=== PATIENT | male | born 1950 | race Caucasian/White ===

== ENCOUNTER 2016-06-12 14:16 | Inpatient (IN) | payer OTHER ==
[~2016-06-12] VITALS: Ht 170.2 cm; Wt 108.7 kg
[~2016-06-12 14:16] MED LIST: /IPRAINH INFIL; /IPRAINH INH; /MOXI40TA OR; /TAMS4CA OR; ACET65TA OR; ALBU17IN INH; ALBUTEROL INH; ALPR0.25 PO; AMLO5TAB2 PO; ASPI81TA7 PO; ATEN50TA2 OR; Astepro; CEFT500T3 PO; CITA10TA5 PO; CLAR5CHW OR; COLA100C2 OR; COZA50TA18 OR; DILA100C OR; DUONSOL IN; FLOM5CAP PO; FORADIL INH; FURO20TA2 PO; LASI20TA OR; LEVA500T OR; LEVOTAB10 PO; LOSA50TA20 PO; MEDR8TAB OR; MEDR8TAB PO; METH16TA OR; MIRALEX PO; MUCI600T34 PO; MUCINEX PO; MUCU400T2 OR; NASONEX; OMEP20CA3 PO; OMEP20TA7 PO; PERFOROMIST INH; PHEN100C PO; PRED10TA2 OR; PRED20TA OR; PRED20TA PO; PRIL40CA OR; PULM0.5S IN; SING10TA31 OR; SYMB16INH INH; SYMB80AE IN; VENTAER IN; VENTAER INH; VIBR100C OR; VIT D 2000 PO; VITA200015 PO; XANA0.25 OR; ZITH250T OR; mucinex PO; proventil; proventil inhaler INH
[2016-06-12 15:18] LABS: BASO % 0.9 % (0.0-1.0); EOS # 0.1 K/mm3 (0.0-0.50); EOS % 2.3 % (0.0-3.0); LARGE UNSTAINED CELL # 0.2 K/mm3 (0.0-0.4); LARGE UNSTAINED CELL % 3.5 % (0.0-4.0); LYMPH # 1.5 K/mm3 (1.5-4.5); MEAN CORPUSCULAR HEMOGLOBIN 28.6 pg (27.0-33.0); MEAN CORPUSCULAR HGB CONC 33.6 g/dl (32.0-36.5); MEAN CORPUSCULAR VOLUME 85.3 fl (80.0-96.0); MONO # 0.5 K/mm3 (0.0-0.8); MONO % 8.6 % (0.0-5.0); NEUTROPHILS # 3.3 K/mm3 (1.8-7.7); NEUTROPHILS % 60.7 % (36.0-66.0); PLATELET COUNT, AUTOMATED 185 k/mm3 (150-450); RED CELL DISTRIBUTION WIDTH 13.1 % (11.5-14.5); WHITE BLOOD COUNT 5.4 K/mm3 (4.0-10.0)
[2016-06-12 15:21] LABS: INR 1.06
--- NOTE | 2016-06-12 15:21 | REP ---
Clinical: Acute cerebrovascular accident (< 4.5 hours). Comparison: None . Findings: The ventricles, sulci, and cisterns are normal in position and appearance. Walters-white differentiation is maintained. No acute intracranial hemorrhage, mass/mass effect, pathology or trauma/injury. No evidence for acute infarction. No extra-axial fluid collection. Calvarium is intact. Paranasal sinuses and mastoid air cells are clear. Impression: Normal noncontrast head CT. No evidence for acute intracranial pathology, hemorrhage or trauma/injury. Signed by Luis Enrique Barnes MD 06/12/2016 03:12 P
[2016-06-12 15:28] LABS: ANION GAP 8 MEQ/L (8-16); BLOOD UREA NITROGEN 23 MG/DL (7-18); CALCIUM LEVEL 8.8 MG/DL (8.8-10.2); CARBON DIOXIDE LEVEL 28 MEQ/L (21-32); CHLORIDE LEVEL 106 MEQ/L (98-107); CREATININE FOR GFR 0.87 MG/DL (0.70-1.30); GLOMERULAR FILTRATION RATE > 60.0 (>49); GLUCOSE, FASTING 94 MG/DL (80-110); SODIUM LEVEL 142 MEQ/L (136-145)
--- NOTE | 2016-06-12 15:37 | REP ---
Clinical: Acute cerebrovascular accident. Comparison: 03/11/2015 . Findings: The mediastinum and cardiac silhouette are stable and within normal limits for portable technique. The lung lee are clear without acute consolidation, effusion, or pneumothorax. Skeletal structures are intact. Impression: Normal portable chest x-ray Signed by Luis Enrique Barnes MD 06/12/2016 03:28 P
[2016-06-12] MEDS ORDERED: ARTI99.0 OU (15:59)
[2016-06-12] MEDS ORDERED: ACETAMINOPHEN 325 MG TAB As Ordered ONE (17:03)
[2016-06-12] MEDS ORDERED: FUROSEMIDE 20 MG TAB PO PRN (18:30)
[2016-06-12] MEDS ORDERED: POLYVINYL ALCOHOL OPHTH SOLN 15 ML(LIQUITEARS) OU PRN (18:30)
[2016-06-12] MEDS ORDERED: ALPRAZolam 0.25 MG TAB PO PRN (18:30)
[2016-06-12] MEDS ORDERED: ALBUTEROL 90 MCG/ACT 8GM HFA INHALER INH PRN (18:30)
[2016-06-12] MEDS ORDERED: LORazepam 2 MG/ML VIAL (J2060) As Ordered ONE (19:02)
[2016-06-12 19:22] LABS: CHOLESTEROL LEVEL 162 MG/DL (<200); TRIGLYCERIDES LEVEL 192 MG/DL (<150)
--- NOTE | 2016-06-12 20:20 | REPUSA ---
MRI of the brain Clinical history: dizziness. Technique: Multiecho multiplanar MRI images of the brain were obtained without administration of cont rast. Diffusion weighted images with ADC mapping was also obtained. Findings: The ventricles and sulci are symmetric bilaterally. The brain parenchyma demonstrates uniform and nor mal signal on all sequences. However, there is an area restricted diffusion in the subcortical white matter in the right posterior parietal lobe. There is no midline shift, mass effect, or extra-axial f luid collection. The midline intracranial structures do not demonstrate any gross abnormalities. The cervical cranial junction is intact. The orbits are unremarkable. The visualized paranasal sinuses an d mastoid air cells are clear. The osseous structures and superficial soft tissues are unremarkable. The vascular structures demonstrate appropriate flow voids. Impression: Findings consistent with a small focal acute infarct in the subcortical white matter of t he posterior right parietal lobe. A call was placed to the facility, but the patient was being transferred. Later attempted call will be performed.
--- NOTE | 2016-06-12 20:20 | REPUSA ---
MR angiogram of the brain Clinical history: dizziness. Technique: [id number]-ct-zazuit MRA images of the brain were obtained without administration of contrast. 3 -D MIP images were also obtained. Findings: The vascular structures extending from the distal carotid and vertebrobasilar arterial syst ems, through the upper [place], demonstrate normal caliber and contour. There is no evidence of an eurysm, stenosis, or thrombosis. Impression: Unremarkable MRA examination of the brain.
--- NOTE | 2016-06-12 21:09 | HPE ---
DATE OF ADMISSION: 06/12/2016 PRIMARY CARE PROVIDER: Dr. Raman Galaviz. HISTORY OF PRESENT ILLNESS: This patient is a 66-year-old male with a past medical history significant for chronic obstructive pulmonary disease (COPD), obstructive sleep apnea (CHRIS), seizure disorder, hyperlipidemia, benign prostatic hypertrophy (BPH), gastroesophageal reflux disease (GERD), arteriovenous (AV) malformation of the stomach, iron-deficiency anemia, who presented to [facility] on 06/12/2016, for left-sided weakness. The patient stated he was taking a nap for roughly 1-1/2 hours, and he woke up between 12:30 to 1:00 o'clock with left arm and left leg weakness and numbness. The patient does not remember the onset of the symptoms and the patient also feels his head is very full and without any visual or auditory changes. The patient came here to [facility] for further evaluation. When the patient arrived in the [facility] Emergency Room, all the vital signs were in the satisfactory range except the blood pressure of 172/97. The patient had similar symptoms in the past. He had the left face and the left shoulder numbness in November of 2014. The patient was seen in [place], which did not show any significant findings, and the patient had complete resolution of the symptoms and the patient has been taking aspirin 81 mg. ALLERGIES: PENICILLIN, SULFA, TETRACYCLINE, and CODEINE. HOME MEDICATIONS: - Ventolin two puff inhalation every four hours as needed - alprazolam 0.25 mg by mouth four times a day as needed for anxiety - amlodipine 5 mg by mouth at bedtime - aspirin 81 mg by mouth daily - Symbicort two puff inhalation twice a day - vitamin D 2000 units by mouth daily - citalopram 10 mg by mouth daily - Lasix 20 mg by mouth daily as needed for lower extremity swelling - levocetirizine 5 mg by mouth at bedtime - Losartan 50 mg by mouth twice a day - omeprazole 40 mg by mouth daily - Flomax 0.4 mg by mouth daily PAST MEDICAL HISTORY: 1. COPD. 2. CHRIS on continuous positive airway pressure (CPAP). 3. Seizure disorder. 4. Hyperlipidemia. 5. Hiatal hernia. 6. BPH. 7. Gastroesophageal reflux disease. 8. AV malformation of the gastric antrum. 9. Iron-deficiency anemia. PAST SURGICAL HISTORY: 1. Carpal tunnel repair. 2. Lower spinal cord segment fusion in 1967. 3. Right rotator cuff repair. SOCIAL HISTORY: The patient quit smoking in 1985. The patient drinks a beer occasionally. Denies any recreational drug use. REVIEW OF SYSTEMS: GENERAL: No fever, no chills. HEENT: No vision change, no auditory change. CARDIOVASCULAR: No chest pain, no palpitations. RESPIRATORY: No shortness of breath, cough or sputum production. GASTROINTESTINAL: No nausea, no vomiting, no abdominal pain. MUSCULOSKELETAL: Intermittent lower extremity swelling. No muscle pain or joint pain. NEUROLOGIC: Acute onset of left upper and lower extremity numbness and tingling between 12:30 to 1 p.m. today, and the symptoms resolved in the last 5-6 hours. The patient had similar episode happen in the past, once in [place]. OBJECTIVE: VITAL SIGNS: Blood pressure is 167/94, pulse 80, respirations 18, temperature 97.8, pulse oximetry 96% on room air. Body weight is 106.49 kg. Body height is 170.18 cm. GENERAL: No sign of acute distress. Alert and oriented times three. Morbidly obese. HEENT: Normocephalic, atraumatic. Extraocular motor grossly intact. CARDIOVASCULAR: Distant heart sounds. Positive S1, S2. Regular rate. LUNGS: Clear to auscultation bilaterally. ABDOMEN: Soft, nontender, nondistended. Bowel sounds present. No rebound, no guarding. EXTREMITIES: No edema, no cyanosis. NEUROLOGIC: Sensation to fine touch grossly intact. Muscle strength 5/5 throughout. LABORATORY DATA: WBC is 5.4, hemoglobin 13, hematocrit 38.8, platelet count 185. Sodium 142, potassium 4, chloride 106, carbon dioxide 28, BUN 23, creatinine 0.87, GFR greater than 60, fasting glucose 94, calcium 8.8. Total CK is 143, troponin I is less than 0.02. PT is 13.9, INR is 1.06. IMAGING: CT of the head without contrast showed normal non-contrast head CT. No evidence of acute intracranial pathology, hemorrhage or trauma/injury. Chest x-ray showed normal portable chest x-ray. ASSESSMENT AND PLAN: 1. Transient ischemic attack (TIA). The patient is admitted to the progressive care unit (PCU) under observation status. The patient now has complete resolution of the symptoms. Continue with neurologic checks. Discussed the case with Dr. Cutler. The patient's aspirin will be discontinued, and the patient was started on Plavix. We will complete the stroke workup and the patient will get MRI/MRA and carotid artery ultrasound, and echocardiogram. 2. The patient was started on permissive hypertension. Blood pressure has holding parameter. 3. Obstructive sleep apnea. The patient has continuous positive airway pressure (CPAP) with him. 4. Chronic obstructive pulmonary disease, currently compensated. Does not require any oxygen. 5. Hypertension. Currently will allow patient for permissive hypertension. Will continue to monitor vitals. 6. History of seizure disorder, stable. 7. Hyperlipidemia. Follow with lipid profile. The patient is not on any cholesterol medication at home. 8. History of benign prostatic hypertrophy (BPH), stable. Continue tamsulosin. 9. History of arteriovenous (AV) malformation of gastric antrum. 10. Gastroesophageal reflux disease. Continue omeprazole. 11. History of iron-deficiency anemia. Hemoglobin and hematocrit stable. 12. Deep venous thrombosis (DVT) prophylaxis. Patient will be on thromboembolism deterrent stockings (TEDs) and sequential compression devices.
--- NOTE | 2016-06-12 23:30 | EDDOCDS ---
Physician Documentation [facility] Name: Wendy Hoang Age: 66 yrs Sex: Male : 1950 Arrival Date: 06/12/2016 Time: 14:16 Bed 18 Private MD: Raman Galaviz MD Disposition: 06/12/16 18:05 Hospitalization ordered by Jody Earl for Inpatient Admission. Preliminary diagnosis is Cerebral ischemia. - Bed requested for PCU. - Status is Inpatient Admission. nn1 - Condition is Stable. - Problem is new. - Symptoms are unchanged. Historical: - Allergies: Advair Diskus; Codeine Sulfate; PENICILLINS; Pulmicort; SULFA (SULFONAMIDES); TETRACYCLINES; - Home Meds: 1. alprazolam 0.25 mg Oral TbDL as needed 2. amlodipine 5 mg Oral tab once daily PT STATES NORMALLY TAKES AT HS 3. aspirin 81 mg Oral chew once daily 4. citalopram 10 mg Oral tab once daily 5. furosemide 20 mg Oral tab once daily 6. levocetirizine 5 mg oral tab once daily 7. losartan 50 mg oral tab 2 times per day 8. omeprazole 40 mg Oral cpDR once daily 9. pro Air 90 as needed 10. symbicort 160/4.5 2 puffs BID 11. tamsulosin 0.4 mg oral cp24 once daily 12. vit d 2000 daily - PMHx: COPD; Hypertension; Seizures; - PSHx: Rotator Cuff Repair- Right; - Social history: Smoking status: Patient/guardian denies using No barriers to communication noted, The patient speaks fluent Thai. - Family history: Not pertinent. - : The pt / caregiver states he / she is not on anticoagulants. Home medication list is obtained from the patient, [place] import data. - Exposure Risk Screening:: None identified. Vital Signs: 06/12 14:20 BP 172 / 97; Pulse 86; Resp 18 S; Temp 97.8(O); Pulse Ox 96% on R/A; Weight 106.59 kg / gr2 234.99 lbs (R); Height 5 ft. 7 in. (170.18 cm) (R); Pain 3/10; 14:40 BP 161 / 89 (auto/); kr3 14:42 Pulse 80 MON; Pulse Ox 95% ; kr3 15:10 BP 174 / 92 (auto/); ld5 15:10 Pulse 84 MON; Pulse Ox 95% ; ld5 15:40 BP 153 / 93 (auto/); ld5 15:40 Pulse 78 MON; Pulse Ox 95% ; ld5 16:10 BP 139 / 72 (auto/); ld5 16:10 Pulse 74 MON; Pulse Ox 95% ; ld5 16:40 BP 167 / 94 (auto/); ld5 16:41 Pulse 80 MON; Pulse Ox 96% ; ld5 17:10 BP 168 / 103 (auto/); ld5 17:10 Pulse 74 MON; Pulse Ox 95% ; ld5 17:40 BP 143 / 71 (auto/); ld5 17:40 Pulse 70 MON; Resp 18; Temp 97.9; Pulse Ox 93% ; ld5 18:10 BP 159 / 101 (auto/); nn1 18:11 Pulse 80 MON; Pulse Ox 95% ; nn1 18:38 BP 178 / 100 (auto/); ld5 18:38 Pulse 76 MON; Pulse Ox 95% ; ld5 18:53 BP 178 / 99 (auto/); nn1 18:53 Pulse 78 MON; Pulse Ox 96% ; nn1 20:33 BP 149 / 87 (auto/); nn1 20:34 Pulse 82 MON; Pulse Ox 95% ; nn1 20:40 BP 149 / 87; Pulse 78; Resp 18; Temp 96.4(O); Pulse Ox 93% on R/A; Pain 0/10; nn1 20:48 BP 161 / 93 (auto/); nn1 20:49 Pulse 78 MON; Pulse Ox 94% ; nn1 21:03 BP 166 / 96 (auto/); nn1 21:04 Pulse 76 MON; Pulse Ox 95% ; nn1 21:18 BP 145 / 90 (auto/); nn1 21:19 Pulse 78 MON; Pulse Ox 93% ; nn1 21:33 BP 143 / 87 (auto/); nn1 21:36 Pulse 72 MON; Pulse Ox 96% ; nn1 23:16 BP 159 / 85; Pulse 73; Resp 18; Temp 97.4(O); Pulse Ox 93% on R/A; Pain 0/10; nn1 14:20 Body Mass Index 36.81 (106.59 kg, 170.18 cm) gr2 MDM: 15:01 RN interventions must not delay CT ordered. ld5 15:01 Retort Feeder Ground Bone/Pulse Ox/q 15 min VS ordered. ld5 15:01 Accucheck ordered. ld5 15:01 IV Saline Lock ordered. ld5 15:01 Neuro VS q 15 Minutes ordered. ld5 15:01 Patient must be on CC stretcher and weighed via bed scale ordered. ld5 15:01 Rhythm Strip to chart ordered. ld5 15:01 Stroke assessment pack to bedside ordered. ld5 15:02 Basic Metabolic Profile Ordered. EDMS 15:02 CBC with Diff Ordered. EDMS 15:02 Partial Thromboplastin Time Ordered. EDMS 15:02 Prothrombin Time Profile\E\INR Ordered. EDMS 15:02 Chest, 1 View Ordered. EDMS 15:02 CT Head Without Contrast Ordered. EDMS 15:02 ECG WITH READING ER PHYS+CARDIAG ordered. EDMS 15:14 CARDIAC INJURY PROFILE Ordered. EDMS 15:14 TROPONIN Ordered. EDMS 15:24 BED REQUEST+ADM ordered. EDMS 15:31 Fingerstick Blood Sugar Ordered. EDMS 15:34 Financial registration complete. gjb 15:58 [facility] [place] was scanned into [employer] and attached to record. gjb 16:57 Basic Metabolic Profile Reviewed. ml 16:57 CBC with Diff Reviewed. ml 16:57 Partial Thromboplastin Time Reviewed. ml 16:57 Prothrombin Time Profile\E\INR Reviewed. ml 16:57 Type & Screen Reviewed. ml 16:57 CARDIAC INJURY PROFILE Reviewed. ml 16:57 TROPONIN Reviewed. ml 16:57 Fingerstick Blood Sugar Reviewed. ml 16:57 CT Head Without Contrast Reviewed. ml 16:57 Chest, 1 View Reviewed. ml 17:03 Acetaminophen Tablet 650 mg PO once ordered. ld5 17:04 REGULAR+DIET ordered. EDMS 18:37 Admission / Observation Status ordered. EDMS 18:37 2 GRAM SODIUM DIET ordered. EDMS 18:39 MRI Brain without Contrast Ordered. EDMS 18:39 MRA BRAIN W/O CONTRAST Ordered. EDMS 18:40 ECHOCARD,DOPPLER/COLOR FLOW ordered. EDMS 18:41 Duplex,carotid (complete) Ordered. EDMS 19:03 LORazepam 1 mg IVP once ordered. ld5 19:09 CARDIAC RISK PROFILE Ordered. EDMS 19:33 COMPLETE BLOOD COUNT Ordered. EDMS 19:33 BASIC METABOLIC PROFILE Ordered. EDMS Point of Care Testing: Blood Glucose: 15:24 Blood Glucose: 96 mg/dL; ld5 Ranges: Administered Medications: 17:07 Drug: Acetaminophen 650 mg [acetaminophen 325 mg tablet (2 tabs)] Route: PO; ld5 18:16 Follow up: Response: Pain is decreased ld5 19:10 Drug: LORazepam 1 mg [lorazepam 2 mg/mL injection solution (0.5 mL)] Route: IVP; Site: nn1 right antecubital; Signatures: Dispatcher [employer] EDMO Bisi Ingram MD MD ml Maryjane French, RN RN dls Jordan RichaHeidyLisa, Process Machine Operator Unit ml3 Leti Henriquez RN RN ld5 Ishaan Conroy RN RN nn1 Aury Chavez The chart was reviewed and I authenticate all verbal orders and agree with the evaluation and treatment provided.Corrections: (The following items were deleted from the chart) 15:12 15:02 CARDIAC INJURY PROFILE+LAB ordered. EDMO EDMS 15:13 15:02 TROPONIN+LAB ordered. EDMO EDMS 15:25 15:01 Consult [facility]: Telemedicine Stroke Attending ordered. ld5 rs6 15:53 15:02 TYPE & SCREEN+BBK ordered. EDMO EDMS 19:09 18:57 CARDIAC RISK PROFILE ordered. [facility] EDMS Attachments: 15:58 [facility] Payment Agreement gjb [email or web address]
--- NOTE | 2016-06-12 23:30 | EDDOCDS ---
Nurse's Notes [facility] Name: Wendy Hoang Age: 66 yrs Sex: Male : 1950 Arrival Date: 06/12/2016 Time: 14:16 Bed 18 Private MD: Raman Galaviz MD Diagnosis: Cerebral ischemia Presentation: 06/12 14:22 Presenting complaint: Patient states: Pt presents with c/o left sided weakness and dls feeling dizzy since shortly after 12 noon. Pt recently treated for ear infection. Pt woke up from sleeping in chair difficulty walking weakness left arm and leg denies chest pain c/o slight headache pt has hx of hypertension. Speech is clear. The last date and time the patient was known to be well was was at 10:00 on June 12, 2016. Adult Sepsis Screening: The patient does not have new or worsening altered mentation. Patient's respiratory rate is less than 22. Systolic blood pressure is greater than 100. Patient has a qSOFA score of 0- Negative Sepsis Screen. Suicide/Homicide risk assessment- the patient denies having any suicidal and/or homicidal ideations and does not present with any other emotional, behavioral or mental health complaints. Status: Patient is not a business services sales agent or dependent. Transition of care: patient was not received from another setting of care. 14:22 Acuity: TIFFANY Level 2 dls 14:22 Method Of Arrival: Walkin/Carried/Asstd dls Triage Assessment: 14:29 The onset of the patients symptoms was less than three hours ago. General: Appears dls obese, uncomfortable, well developed, Behavior is cooperative. Pain: Pain currently is 2 out of 10 on a pain scale. Neurological: Level of Consciousness is awake, alert, Oriented to person, place, time, Reports a syncopal episode weakness. Historical: - Allergies: Advair Diskus; Codeine Sulfate; PENICILLINS; Pulmicort; SULFA (SULFONAMIDES); TETRACYCLINES; - Home Meds: 1. alprazolam 0.25 mg Oral TbDL as needed 2. amlodipine 5 mg Oral tab once daily PT STATES NORMALLY TAKES AT HS 3. aspirin 81 mg Oral chew once daily 4. citalopram 10 mg Oral tab once daily 5. furosemide 20 mg Oral tab once daily 6. levocetirizine 5 mg oral tab once daily 7. losartan 50 mg oral tab 2 times per day 8. omeprazole 40 mg Oral cpDR once daily 9. pro Air 90 as needed 10. symbicort 160/4.5 2 puffs BID 11. tamsulosin 0.4 mg oral cp24 once daily 12. vit d 2000 daily - PMHx: COPD; Hypertension; Seizures; - PSHx: Rotator Cuff Repair- Right; - Social history: Smoking status: Patient/guardian denies using No barriers to communication noted, The patient speaks fluent [place]. - Family history: Not pertinent. - : The pt / caregiver states he / she is not on anticoagulants. Home medication list is obtained from the patient, Live[employer] import data. - Exposure Risk Screening:: None identified. Screenin:29 Screening information is obtained from the patient, prior medical records. Fall risk: nn1 No risks identified. Assistance ADL's: requires no assistance with activities of daily living. Abuse/DV Screen: The patient / caregiver reports he/she is: not in a situation that causes fear, pain or injury. Nutritional screening: No deficits noted. Advance Directives: There is no active DNR order. home support is adequate. Assessment: 14:49 Reassessment: Patient appears in no apparent distress at this time. Pain: Denies pain. kr3 Neurological: Level of Consciousness is awake, alert, Substance Abuse Specialist are equal bilaterally Speech is normal, Facial symmetry appears normal, Reports numbness to left arm/hand and left leg which has improved. Reports at home had difficulty moving left leg but now walking with no difficulty.. Respiratory: Respiratory effort is even, unlabored. Derm: Skin is pink, warm & dry. 15:20 General: Appears in no apparent distress, Behavior is cooperative. Pain: Denies pain. ld5 Neurological: Level of Consciousness is awake, alert, obeys commands, Oriented to person, place, time, Substance Abuse Specialist are equal bilaterally Moves all extremities. Speech is normal, Facial symmetry appears normal, Pt reports numbness to left leg when standing but denies when laying down. Respiratory: Airway is patent Respiratory effort is even, unlabored. GI: Abdomen is obese, Bowel sounds present X 4 quads. Abd is soft and non tender X 4 quads. Denies nausea, vomiting. 15:45 General: Pt laying comfortably bed. Awaiting results. Denies any needs at this time. ld5 Will continue to monitor. 16:00 General: Appears in no apparent distress, Behavior is cooperative. Neurological: Level ld5 of Consciousness is awake, alert, Oriented to person, place, time. 16:15 General: Pt laying quietly in ed. Bed repositioned for comfort. Pt alert and oriented ld5 x3. 16:55 General: Appears in no apparent distress, Behavior is appropriate for age, cooperative. ld5 Neurological: Level of Consciousness is awake, alert, obeys commands. Respiratory: Airway is patent Respiratory effort is even, unlabored. 17:07 General: Pt requesting medication for headache. Pt medicated per orders. Lights dimmed ld5 for comfort. Will continue to monitor. 17:45 General: Pt laying quietly in bed. No apparent distress. Reports decrease in headache. ld5 Respirations easy and unlabored. Family member at bedside. Will continue to monitor. 18:15 General: Dinner tray provided. Pt sitting up in bed. Call panchal within reach. Will ld5 continue to monitor. 18:40 General: Pt finished dinner. Tolerated well. Reports headache continues to decrease. ld5 Denies any needs. Bed repositioned for comfort. Call panchal within reach. Will continue to monitor. 18:41 General: Pt's BP trending up but pt denies any change in symptoms. Will continue to ld5 monitor. 19:12 General: Patient medicated prior to MRI, patient in no distress at this time. . nn1 20:41 General: Appears in no apparent distress, comfortable, Behavior is appropriate for age, nn1 cooperative. Pain: Denies pain. Neurological: Level of Consciousness is awake, alert, obeys commands, Oriented to person, place, time. 21:53 General: Patient informed about disposition, patient awaiting to be moved to PCU. nn1 Patient watching basketball game. In no distress at this time. . Respiratory: Airway is patent Respiratory effort is even, unlabored, Respiratory pattern is regular. Derm: Skin is pink, warm & dry. 22:28 General: Per PCU bed is still dirty. . Neurological: Level of Consciousness is awake, nn1 alert, obeys commands, Oriented to person, place, time, Moves all extremities. Facial symmetry appears normal. Respiratory: Airway is patent Respiratory effort is even, unlabored, Respiratory pattern is regular. Derm: Skin is pink, warm & dry. 23:27 General: Appears in no apparent distress, comfortable, Behavior is appropriate for age, nn1 cooperative, Patient denies dizziness, asymptomatic at this time. Patient receptive to admission.. Neurological: Level of Consciousness is awake, alert, Oriented to person, place, time. Respiratory: Airway is patent Respiratory effort is even, unlabored, Respiratory pattern is regular. Derm: Skin is pink, warm & dry. Vital Signs: 14:20 BP 172 / 97; Pulse 86; Resp 18 S; Temp 97.8(O); Pulse Ox 96% on R/A; Weight 106.59 kg gr2 (R); Height 5 ft. 7 in. (170.18 cm) (R); Pain 3/10; 14:40 BP 161 / 89 (auto/); kr3 14:42 Pulse 80 MON; Pulse Ox 95% ; kr3 15:10 BP 174 / 92 (auto/); ld5 15:10 Pulse 84 MON; Pulse Ox 95% ; ld5 15:40 BP 153 / 93 (auto/); ld5 15:40 Pulse 78 MON; Pulse Ox 95% ; ld5 16:10 BP 139 / 72 (auto/); ld5 16:10 Pulse 74 MON; Pulse Ox 95% ; ld5 16:40 BP 167 / 94 (auto/); ld5 16:41 Pulse 80 MON; Pulse Ox 96% ; ld5 17:10 BP 168 / 103 (auto/); ld5 17:10 Pulse 74 MON; Pulse Ox 95% ; ld5 17:40 BP 143 / 71 (auto/); ld5 17:40 Pulse 70 MON; Resp 18; Temp 97.9; Pulse Ox 93% ; ld5 18:10 BP 159 / 101 (auto/); nn1 18:11 Pulse 80 MON; Pulse Ox 95% ; nn1 18:38 BP 178 / 100 (auto/); ld5 18:38 Pulse 76 MON; Pulse Ox 95% ; ld5 18:53 BP 178 / 99 (auto/); nn1 18:53 Pulse 78 MON; Pulse Ox 96% ; nn1 20:33 BP 149 / 87 (auto/); nn1 20:34 Pulse 82 MON; Pulse Ox 95% ; nn1 20:40 BP 149 / 87; Pulse 78; Resp 18; Temp 96.4(O); Pulse Ox 93% on R/A; Pain 0/10; nn1 20:48 BP 161 / 93 (auto/); nn1 20:49 Pulse 78 MON; Pulse Ox 94% ; nn1 21:03 BP 166 / 96 (auto/); nn1 21:04 Pulse 76 MON; Pulse Ox 95% ; nn1 21:18 BP 145 / 90 (auto/); nn1 21:19 Pulse 78 MON; Pulse Ox 93% ; nn1 21:33 BP 143 / 87 (auto/); nn1 21:36 Pulse 72 MON; Pulse Ox 96% ; nn1 23:16 BP 159 / 85; Pulse 73; Resp 18; Temp 97.4(O); Pulse Ox 93% on R/A; Pain 0/10; nn1 14:20 Body Mass Index 36.81 (106.59 kg, 170.18 cm) gr2 Vitals: 14:20 Log In Time: June 12, 2016 at 14:20. gr2 ED Course: 14:19 Patient visited by Brenna Mcbride. gr2 14:19 Raman Galaviz is Private Physician. gr2 14:19 Patient moved to Waiting gr2 14:21 Patient visited by Brenna Mcbride. gr2 14:21 Patient moved to Pre RCE gr2 14:26 Triage Initiated dls 14:30 Teodora Lucio,RN is Primary Nurse. dls 14:30 Patient moved to 18 dls 14:49 Inserted saline lock: 20 gauge in right antecubital area and blood collected. The kr3 patient tolerated the procedure well. 14:50 The patient / caregiver is instructed regarding the plan of care and ED course. kr3 Accompanied by Family Member, Patient has correct armband on for positive identification. Placed in gown. Bed in low position. Call light in reach. Side rails up X2. shelter monitor on. Pulse ox on. NIBP on. 14:55 Bisi Ingram MD is Attending Physician. ml 14:56 Patient visited by Bisi Ingram MD. ml 15:05 Basic Metabolic Profile Sent. ld5 15:05 CBC with Diff Sent. ld5 15:05 Partial Thromboplastin Time Sent. ld5 15:05 Prothrombin Time Profile\E\INR Sent. ld5 15:10 EKG done. (by ED staff). Reviewed by Bisi Ingram MD. ar3 15:14 Patient visited by Baylee Flores PCA. ar3 15:23 TROPONIN Sent. ld5 15:24 CARDIAC INJURY PROFILE Sent. ld5 15:32 CT Head Without Contrast Returned. EDMS 15:46 Patient visited by Leti Henriquez RN. ld5 15:58 [facility] Payment Agreement was scanned into [employer] and attached to record. gjb 16:07 Chest, 1 View Returned. EDMS 16:56 Patient visited by Leti Henriquez,ANGELO. ld5 17:08 Patient visited by Leti Henriquez,ANGELO. ld5 17:41 Patient visited by Leti Henriquez,ANGELO. ld5 18:05 Jody Earl is Hospitalizing Provider. ml 18:16 Patient visited by Leti Henriquez RN. ld5 18:43 Patient visited by Leti Henriquez RN. ld5 20:47 MRA BRAIN W/O CONTRAST Returned. EDMS 20:47 MRI Brain without Contrast Returned. EDMS 23:17 No procedures done that require assistance. nn1 Administered Medications: 17:07 Drug: Acetaminophen 650 mg [acetaminophen 325 mg tablet (2 tabs)] Route: PO; ld5 18:16 Follow up: Response: Pain is decreased ld5 19:10 Drug: LORazepam 1 mg [lorazepam 2 mg/mL injection solution (0.5 mL)] Route: IVP; Site: nn1 right antecubital; Point of Care Testing: Blood Glucose: 15:24 Blood Glucose: 96 mg/dL; ld5 Ranges: Order Results: Lab Order: Basic Metabolic Profile; SPEC'M 06/12/16 14:47 Test: GLUCOSE, FASTING; Value: 94; Range: 80-110; Units: MG/DL; Status: F Test: BLOOD UREA NITROGEN; Value: 23; Range: 7-18; Abnormal: Above high normal; Units: MG/DL; Status: F Test: CREATININE FOR GFR; Value: 0.87; Range: 0.70-1.30; Units: MG/DL; Status: F Test: GLOMERULAR FILTRATION RATE; Value: > 60.0; Range: >49; Status: F Test: SODIUM LEVEL; Value: 142; Range: 136-145; Units: MEQ/L; Status: F Test: POTASSIUM SERUM; Value: 4.0; Range: 3.5-5.1; Units: MEQ/L; Status: F Test: CHLORIDE LEVEL; Value: 106; Range: 98-107; Units: MEQ/L; Status: F Test: CARBON DIOXIDE LEVEL; Value: 28; Range: 21-32; Units: MEQ/L; Status: F Test: ANION GAP; Value: 8; Range: 8-16; Units: MEQ/L; Status: F Test: CALCIUM LEVEL; Value: 8.8; Range: 8.8-10.2; Units: MG/DL; Status: F Test Note: ; Units are mL/min/1.73 m2 Chronic Kidney Disease Staging per NKF: Stage I & II GFR >=60 Normal to Mildly Decreased Stage III GFR 30-59 Moderately Decreased Stage IV GFR 15-29 Severely Decreased Stage V GFR <15 Very Little GFR Left ESRD GFR <15 on STOVE CARRIAGE OPERATOR Test: TRIGLYCERIDES LEVEL; Range: <150; Units: MG/DL; Status: I Test: CHOLESTEROL LEVEL; Range: <200; Units: MG/DL; Status: I Test: HDL CHOLESTEROL; Range: >40; Units: MG/DL; Status: I Test: LDL CHOLESTEROL; Range: <100; Units: MG/DL; Status: I Test: NON-HDL-C; Units: MG/DL; Status: I Test: CHOLESTEROL RISK RATIO; Range: <5; Status: I Lab Order: CBC with Diff; SPEC'M 06/12/16 14:47 Test: WHITE BLOOD COUNT; Value: 5.4; Range: 4.0-10.0; Units: K/mm3; Status: F Test: RED BLOOD COUNT; Value: 4.55; Range: 4.30-6.10; Units: M/mm3; Status: F Test: HEMOGLOBIN; Value: 13.0; Range: 14.0-18.0; Abnormal: Below low normal; Units: g/dl; Status: F Test: HEMATOCRIT; Value: 38.8; Range: 42.0-52.0; Abnormal: Below low normal; Units: %; Status: F Test: MEAN CORPUSCULAR VOLUME; Value: 85.3; Range: 80.0-96.0; Units: fl; Status: F Test: MEAN CORPUSCULAR HEMOGLOBIN; Value: 28.6; Range: 27.0-33.0; Units: pg; Status: F Test: MEAN CORPUSCULAR HGB CONC; Value: 33.6; Range: 32.0-36.5; Units: g/dl; Status: F Test: RED CELL DISTRIBUTION WIDTH; Value: 13.1; Range: 11.5-14.5; Units: %; Status: F Test: PLATELET COUNT, AUTOMATED; Value: 185; Range: 150-450; Units: k/mm3; Status: F Test: NEUTROPHILS %; Value: 60.7; Range: 36.0-66.0; Units: %; Status: F Test: LYMPH %; Value: 24.0; Range: 24.0-44.0; Units: %; Status: F Test: MONO %; Value: 8.6; Range: 0.0-5.0; Abnormal: Above high normal; Units: %; Status: F Test: EOS %; Value: 2.3; Range: 0.0-3.0; Units: %; Status: F Test: BASO %; Value: 0.9; Range: 0.0-1.0; Units: %; Status: F Test: LARGE UNSTAINED CELL %; Value: 3.5; Range: 0.0-4.0; Units: %; Status: F Test: NEUTROPHILS #; Value: 3.3; Range: 1.8-7.7; Units: K/mm3; Status: F Test: LYMPH #; Value: 1.5; Range: 1.5-4.5; Units: K/mm3; Status: F Test: MONO #; Value: 0.5; Range: 0.0-0.8; Units: K/mm3; Status: F Test: EOS #; Value: 0.1; Range: 0.0-0.50; Units: K/mm3; Status: F Test: BASO #; Value: 0.0; Range: 0.0-0.2; Units: K/mm3; Status: F Test: LARGE UNSTAINED CELL #; Value: 0.2; Range: 0.0-0.4; Units: K/mm3; Status: F Lab Order: Partial Thromboplastin Time; SPEC'M 06/12/16 14:47 Test: PARTIAL THROMBOPLASTIN TIME; Value: 26.7; Range: 26.6-37.1; Units: SECONDS; Status: F Lab Order: Prothrombin Time Profile\E\INR; [facility] 06/12/16 14:47 Test: PROTHROMBIN TIME; Value: 13.9; Range: 12.3-14.5; Units: SECONDS; Status: F Test: INR; Value: 1.06; Status: F Test Note: ; THERAPUTIC HUMAN INR VALUES INDICATIONS NORMAL RANGES PROPHYLAXIS/TREATMENT OF: VENOUS THROMBOSIS 2.0-3.0 PULMONARY EMBOLISM 2.0-3.0 PREVENTION OF SYSTEMIC EMBOLISM FROM: TISSUE HEART VALVES 2.0-3.0 ACUTE MYOCARDIAL INFARCTION 2.0-3.0 VALVULAR HEART DISEASE 2.0-3.0 ATRIAL FIBRILLATION 2.0-3.0 MECHANICAL VALVES(HIGH RISK) 2.5-3.5 RECURRENT MYOCARDIAL INFARCTION 2.5-3.5 Lab Order: Type & Screen; [facility] 06/12/16 15:21 Test: BLOOD TYPE; Value: AP; Status: F Test: AB SCREEN GEL MANUAL; Value: NEGATIVE; Status: F Lab Order: CARDIAC INJURY PROFILE; [facility] 06/12/16 14:47 Test: CPK CREATINE PHOSPHOKINASE; Value: 143; Range: 39-308; Units: U/L; Status: F Test: CK-MB VALUE MASS; Value: 2.7; Range: 0.0-3.6; Units: NG/ML; Status: F Test: MB/CK RELATIVE INDEX; Value: 1.88; Range: < OR =4; Status: F Test Note: ; DIAGNOSIS CRITERIA MMB ng/ml Relative Index (RI) NON-AMI < or = 5 N/A [place]ONE > 5 < or = 4 AMI > 5 > 4 Lab Order: TROPONIN; [facility] 06/12/16 14:47 Test: TROPONIN I; Value: < 0.02; Range: < 0.10; Units: NG/ML; Status: F Test Note: ; Troponin I Reference Interval for [place] LOCI: 99th Percentile= 0.00-0.045 ng/ml Risk Stratification: <= 0.10 ng/ml Decreased Risk for Adverse Clinical Events. 0.10-1.50 ng/ml Increased Risk for Adverse Clinical Events. Evaluation of additional criterion and/or repeat testing in 2-6 hours is suggested to rule out myocardial damage. >= 1.50 ng/ml Indicative of Myocardial Injury. Lab Order: Fingerstick Blood Sugar; SPEC'M 06/12/16 15:22 Test: BEDSIDE GLUCOSE; Value: 96; Range: 80-115; Units: MG/DL; Status: F Lab Order: CARDIAC RISK PROFILE; SPEC'M 06/12/16 14:47 Test: TRIGLYCERIDES LEVEL; Value: 192; Range: <150; Abnormal: Above high normal; Units: MG/DL; Status: F Test: CHOLESTEROL LEVEL; Value: 162; Range: <200; Units: MG/DL; Status: F Test: HDL CHOLESTEROL; Value: 32; Range: >40; Abnormal: Below low normal; Units: MG/DL; Status: F Test: LDL CHOLESTEROL; Value: 91.6; Range: <100; Units: MG/DL; Status: F Test: NON-HDL-C; Value: 130; Units: MG/DL; Status: F Test: CHOLESTEROL RISK RATIO; Value: 5.062; Range: <5; Abnormal: Above high normal; Status: F Radiology Order: CT Head Without Contrast Test: CT Head Without Contrast REASON FOR EXAMINATION: CVA <4.5hrs; Clinical: Acute cerebrovascular accident (< 4.5 hours).; ; Comparison: None .; ; Findings:; The ventricles, sulci, and cisterns are normal in position and appearance.; Walters-white differentiation is maintained. No acute intracranial hemorrhage,; mass/mass effect, pathology or trauma/injury. No evidence for acute infarction.; No extra-axial fluid collection. Calvarium is intact. Paranasal sinuses and; mastoid air cells are clear.; ; Impression:; Normal noncontrast head CT.; No evidence for acute intracranial pathology, hemorrhage or trauma/injury.; ; ; Signed by; Luis Enrique Barnes MD 06/12/2016 03:12 P; Radiology Order: Chest, 1 View Test: Chest, 1 View REASON FOR EXAMINATION: CVA <4.5hrs; Clinical: Acute cerebrovascular accident.; ; Comparison: 03/11/2015 .; ; Findings:; The mediastinum and cardiac silhouette are stable and within normal limits for; portable technique. The lung lee are clear without acute consolidation,; effusion, or pneumothorax. Skeletal structures are intact.; ; Impression:; Normal portable chest x-ray; ; ; Signed by; Luis Enrique Barnes MD 06/12/2016 03:28 P; Radiology Order: MRI Brain without Contrast Test: MRI Brain without Contrast REASON FOR EXAMINATION: stroke/TIA; ; MRI of the brain; Clinical history: dizziness.; Technique: Multiecho multiplanar MRI images of the brain were obtained without administration of cont; rast. Diffusion weighted images with ADC mapping was also obtained.; Findings:; The ventricles and sulci are symmetric bilaterally. The brain parenchyma demonstrates uniform and nor; mal signal on all sequences. However, there is an area restricted diffusion in the subcortical white; matter in the right posterior parietal lobe. There is no midline shift, mass effect, or extra-axial f; luid collection. The midline intracranial structures do not demonstrate any gross abnormalities. The; cervical cranial junction is intact. The orbits are unremarkable. The visualized paranasal sinuses an; d mastoid air cells are clear. The osseous structures and superficial soft tissues are unremarkable.; The vascular structures demonstrate appropriate flow voids.; Impression: Findings consistent with a small focal acute infarct in the subcortical white matter of t; he posterior right parietal lobe.; A call was placed to the facility, but the patient was being transferred. Later attempted call will; be performed.; ; Radiology Order: MRA BRAIN W/O CONTRAST Test: MRA BRAIN W/O CONTRAST REASON FOR EXAMINATION: stroke/TIA; ; MR angiogram of the brain; Clinical history: dizziness.; Technique: [id number] MRA images of the brain were obtained without administration of contrast. 3; -D MIP images were also obtained.; Findings: The vascular structures extending from the distal carotid and vertebrobasilar arterial syst; ems, through the [place], demonstrate normal caliber and contour. There is no evidence of an; eurysm, stenosis, or thrombosis.; Impression: Unremarkable MRA examination of the brain.; ; Outcome: 18:05 Decision to Hospitalize by Provider. ml 23:17 Discharge Assessment: Patient awake, alert and oriented x 3. No cognitive and/or nn1 functional deficits noted. Patient verbalized understanding of disposition instructions. patient administered narcotics - yes. Patient was admitted to the hospital or transferred to another facility. The following High Risk Discharge criteria are identified: None. Admitted to PCU accompanied by nurse, accompanied by tech, family with patient, via stretcher, on monitor, with chart. Condition: stable. CT Study completed. MRI Study completed. Admission hand-off: Report Faxed Fax receipt verified by ANGELO Pro. Property :Personal belongings accompany Pt. 23:29 Patient left the ED. nn1 Signatures: Dispatcher [employer] EDMS Bisi Ingram MD MD ml Scott, Debra, RN RN dls Teodora Lucio RN RN kr3 Baylee Flores, GASTROENTEROLOGIST GASTROENTEROLOGIST ar3 Leti Henriquez RN RN ld5 Brenna Mcbride 2 Ishaan Conroy RN RN nn1 Aury Chavez Corrections: (The following items were deleted from the chart) 15:12 15:05 CARDIAC INJURY PROFILE+LAB sent. 5 EDMS 15:13 15:05 TROPONIN+LAB sent. [facility] EDAR 15:53 15:24 TYPE & SCREEN+BBK sent. [facility] EDAR MTDD
[2016-06-12 23:36] VITALS: BP 170/99
[2016-06-12] MEDS: LOSARTAN 50 MG TAB PO SCH (23:46)
[2016-06-12] MEDS: amLODIPine 5 MG TAB PO SCH (23:47)
[2016-06-12] MEDS: CLOPIDOGREL 75 MG TAB PO SCH (23:47)
[2016-06-13] MEDS: ACETAMINOPHEN TAB 650MG DOSE (2X325MG) PO PRN ×3 (00:44→21:06)
[2016-06-13] MEDS: SYMBICORT 160/4.5MCG INHALER 6GM INH SCH ×3 (00:48→21:25)
[2016-06-13 04:21] VITALS: BP 164/93
[2016-06-13 06:01] LABS: MEAN CORPUSCULAR HEMOGLOBIN 28.4 pg (27.0-33.0); MEAN CORPUSCULAR VOLUME 86.2 fl (80.0-96.0); RED CELL DISTRIBUTION WIDTH 13.1 % (11.5-14.5); WHITE BLOOD COUNT 5.8 K/mm3 (4.0-10.0)
[2016-06-13 06:22] LABS: ANION GAP 7 MEQ/L (8-16); BLOOD UREA NITROGEN 15 MG/DL (7-18); CALCIUM LEVEL 8.5 MG/DL (8.8-10.2); CARBON DIOXIDE LEVEL 29 MEQ/L (21-32); CHLORIDE LEVEL 104 MEQ/L (98-107); CREATININE FOR GFR 0.75 MG/DL (0.70-1.30); GLOMERULAR FILTRATION RATE > 60.0 (>49); GLUCOSE, FASTING 93 MG/DL (80-110); POTASSIUM SERUM 3.8 MEQ/L (3.5-5.1); SODIUM LEVEL 140 MEQ/L (136-145)
[2016-06-13 08:00] VITALS: BP 162/98
--- NOTE | 2016-06-13 08:03 | ECGEPIP ---
Stationary ECG Study [facility] - ED Test Date: 2016-06-12 Pat Name: MAKAYLA NOGUEIRA Department: Room: - Gender: M Digital Strategy Director: xiomara : 1950 Requested By: Bisi Ingram Order Number: [id number] Reading MD: Elicia Arauz Measurements Intervals [place] Rate: 80 P: 26 ID: [id number] QRS: 28 QRSD: 86 T: 32 QT: 361 QTc: 419 Interpretive Statements SINUS RHYTHM DELAYED R PROGRESSION SIMILAR 03/11/15 Electronically Signed On 06-13-2016 8:03:05 EST by Elicia Arauz
[2016-06-13] MEDS: VITAMIN D 1,000 INTERNATIONAL UNITS TABLET PO SCH (08:30)
[2016-06-13] MEDS: TAMSULOSIN 0.4 MG CAP PO SCH (08:31)
[2016-06-13] MEDS: LOSARTAN 50 MG TAB PO SCH ×2 (08:31→21:04)
[2016-06-13] MEDS: CLOPIDOGREL 75 MG TAB PO SCH (08:31)
[2016-06-13] MEDS: OMEPRAZOLE 20 MG CAP PO SCH (08:31)
--- NOTE | 2016-06-13 08:31 | REP ---
Clinical: Transient ischemic attack. Technique: Walters scale and color Doppler evaluation using linear high frequency transducer Findings: Two-dimensional walters scale and color images demonstrate mild atheromatous plaquing along the common carotid arteries extending to the carotid bulbs and proximal internal carotid arteries bilaterally. No significant narrowing is appreciated and normal laminar flow is noted. Color Doppler interrogation demonstrates normal arterial wave patterns and velocities with no significant spectral broadening. Normal flow direction is appreciated in the bilateral vertebral arteries. RIGHT (cm/s) LEFT (cm/s) ICA peak systolic velocity 53.3 52.7 ICA diastolic velocity 22.2 16.1 ECA peak systolic velocity 93.6 81.7 CCA peak systolic velocity 101.2 97.7 ICA/CCA ratio 0.53 0.54 Impression: No hemodynamically significant areas of narrowing or stenosis appreciated. Based on set standards narrowing falls within the less than 50% range. Signed by Luis Enrique Barnes MD 06/13/2016 08:22 A
[2016-06-13] MEDS ORDERED: ASPIRIN 81 MG ENTERIC TAB PO SCH (09:00)
[2016-06-13] MEDS: CitaloPRAM (CeleXA) 10 MG TABLET PO SCH (11:03)
--- NOTE | 2016-06-13 11:28 | IPNPDOC ---
Subjective General Date Seen The patient was seen on 06/13/16. Subjective Chief Complaint/HPI The patient is a 66-year-old male admitted with a reason for visit of TIA. General: Reports: Normal Appetite, Denies: Chills, Fatigue, Malaise, Night Sweats Constitutional: Denies: Chills, Fever, Night Sweats ENT: Reports: Sinus Congestion Skin: Denies: Breakdown, Lesions, Rash Pulmonary: Denies: Cough, Dyspnea Gastrointestinal: Denies: Abdominal Pain, Constipation, Diarrhea, Nausea, Vomiting Neurological: Reports: Weakness (L), Denies: Change in speech, Confusion, Incoordination, Numbness, Seizures Psych: Reports: Mood Normal, Denies: Depression, Memory Issues Objective Physical Examination General Exam: Positive: Alert, No Acute Distress Eye Exam: Positive: Conjunctiva & lids normal, EOMI, PERRLA, Negative: Sclera icteric ENT Exam: Positive: Atraumatic, Mucous membr. moist/pink, Pharynx Normal Chest Exam: Positive: Clear to auscultation, Normal air movement Heart Exam: Positive: Normal S1, Normal S2, Rate Normal, Regular Rhythm, Negative: Murmurs, Rubs Telemetry: Positive: Sinus Abdomen Exam: Positive: Normal bowel sounds, Soft, Negative: Hepatospenomegaly, Tenderness Neuro Exam: Positive: Cranial Nerves 3-12 NL, Normal Gait, Normal Speech, Normal Tone, Reflexes 2+, Sensation Intact, Strength at 5/5 X4 ext Psych Exam: Positive: Mental status NL, Mood NL, Oriented x 3 Assessment /Plan Assessment Wendy is a 66 yo male initially admitted for symptoms of dizziness, decreased sensation, and generalized left sided weakness, with imaging findings consistent with a new right parietal stroke. His symptoms have since resolved, and he has returned to baseline. Problems Problems: (1) Right-sided cerebrovascular accident (CVA) Status: Acute Problem Text: Left sided weakness resolved. 06/13 + HI statin 2015 previous similar L face/UE weakness-favor same distribution Carotid u/s, head ct, MRA WNL MRI Findings consistent with a small focal acute infarct in the subcortical white matter of the posterior right parietal lobe Neurology consulted and recommended initiation of plavix. ASA dc. Echo to be performed today (2) Hypertension Status: Chronic Problem Text: BPs accptable. Home meds continued c hold parameters for permissive HTN. (3) BPH (benign prostatic hyperplasia) Status: Chronic Response to Treatment: Stable Problem Text: On Flomax. (4) Anxiety Status: Chronic Response to Treatment: Stable Problem Text: Celexa, Xanax continued per home regimen (5) COPD (chronic obstructive pulmonary disease) Status: Chronic Response to Treatment: Stable (Home meds continued.) (6) Nasal congestion Status: Acute Problem Text: Flonase, ocean nasal spray as needed. (7) Hyperlipidemia Status: Chronic Response to Treatment: Uncontrolled Problem Text: 05/2016 lipids 92/32/192 s treatment; therefore, + rosuva 20 Plan/VTE VTE Prophylaxis Ordered?: Yes VTE Exclusion Pharmacological: Bleeding Risk VS, I&O, 24H, Fishbone Vital Signs/I&O Vital Signs Date Time Temp Pulse Resp B/P Pulse Ox O2 Delivery O2 Flow Rate FiO2 06/13/16 08:31 148/74 06/13/16 08:00 96.7 77 18 95 Room Air I&O- Last 24 Hours up to 6 AM 06/13/16 06:00 Intake Total 0 ml Output Total 450 ml Balance -450 ml Laboratory Data 24H LABS Laboratory Tests 2 06/12/16 14:47: Activated Partial Thromboplast Time 26.7, Anion Gap 8, White Blood Count 5.4, Red Blood Count 4.55, Hemoglobin 13.0L, Hematocrit 38.8L, Mean Corpuscular Volume 85.3, Mean Corpuscular Hemoglobin 28.6, Mean Corpuscular Hemoglobin Concent 33.6, Red Cell Distribution Width 13.1, Platelet Count 185, Neutrophils (%) (Auto) 60.7, Lymphocytes (%) (Auto) 24.0, Monocytes (%) (Auto) 8.6H, Eosinophils (%) (Auto) 2.3, Basophils (%) (Auto) 0.9, Neutrophils # (Auto) 3.3, Lymphocytes # (Auto) 1.5, Monocytes # (Auto) 0.5, Eosinophils # (Auto) 0.1, Basophils # (Auto) 0.0, Calcium Level 8.8, Triglycerides Level 192H, Cholesterol Level 162, HDL Cholesterol 32L, LDL Cholesterol 91.6, Cholesterol/ HDL Ratio 5.062H, Creatine Kinase MB 2.7, Creatine Kinase MB Relative Index 1.88 , Glomerular Filtration Rate > 60.0, Large Unclassified Cells # 0.2, Large Unclassified Cells % 3.5, Non-HDL Cholesterol (LDL + VLDL) 130, Prothromb Time International Ratio 1.06, Prothrombin Time 13.9, Total Creatine Kinase 143, Troponin I < 0.02 06/12/16 15:22: Bedside Glucose (Misc Panel) 96 06/13/16 05:42: Anion Gap 7L, Calcium Level 8.5L, Glomerular Filtration Rate > 60.0, Blood Urea Nitrogen 15, Creatinine 0.75, Sodium Level 140, Potassium Level 3.8, Chloride Level 104, Carbon Dioxide Level 29 CBC/BMP Laboratory Tests 06/12/16 14:47 Red Blood Count 4.55, Mean Corpuscular Volume 85.3, Mean Corpuscular Hemoglobin 28.6, Mean Corpuscular Hemoglobin Concent 33.6, Red Cell Distribution Width 13.1 , Neutrophils (%) (Auto) 60.7, Lymphocytes (%) (Auto) 24.0, Monocytes (%) (Auto ) 8.6 H, Eosinophils (%) (Auto) 2.3, Basophils (%) (Auto) 0.9, Neutrophils # ( Auto) 3.3, Lymphocytes # (Auto) 1.5, Monocytes # (Auto) 0.5, Eosinophils # (Auto ) 0.1, Basophils # (Auto) 0.0 06/13/16 05:42 Red Blood Count 4.55, Mean Corpuscular Volume 86.2, Mean Corpuscular Hemoglobin 28.4, Mean Corpuscular Hemoglobin Concent 33.0, Red Cell Distribution Width 13.1 , Calcium Level 8.5 L EMIR DUGAN DO Jun 13, 2016 11:28 Davon Rose M.D. Jun 13, 2016 13:49
[2016-06-13] MEDS ORDERED: SODIUM CHLORIDE NASAL 0.65% SPRAY BTL (OCEAN) PRN (11:45)
[2016-06-13 12:00] VITALS: BP 152/78
[2016-06-13 16:00] VITALS: BP 142/89
[2016-06-13 20:19] VITALS: BP 159/88
[2016-06-13] MEDS ORDERED: ROSUVASTATIN 10 MG TAB (CRESTOR) PO SCH (21:00)
[2016-06-13] MEDS: amLODIPine 5 MG TAB PO SCH (21:05)
[2016-06-13] MEDS ORDERED: SLF 3 ML SYR IV PRN (23:45)
[2016-06-14 01:10] VITALS: BP 168/94
[2016-06-14 06:00] VITALS: BP 141/95
[2016-06-14] MEDS ORDERED: SLF 3 ML SYR IV SCH (06:00)
[2016-06-14 07:31] LABS: MEAN CORPUSCULAR HEMOGLOBIN 28.8 pg (27.0-33.0); MEAN CORPUSCULAR HGB CONC 33.4 g/dl (32.0-36.5); MEAN CORPUSCULAR VOLUME 86.4 fl (80.0-96.0); RED CELL DISTRIBUTION WIDTH 13.1 % (11.5-14.5)
[2016-06-14] MEDS ORDERED: ROSU10TA PO (07:34)
[2016-06-14] MEDS ORDERED: CLOP75TA2 PO (07:34)
[2016-06-14 07:55] LABS: ANION GAP 7 MEQ/L (8-16); BLOOD UREA NITROGEN 14 MG/DL (7-18); CALCIUM LEVEL 9.3 MG/DL (8.8-10.2); CARBON DIOXIDE LEVEL 30 MEQ/L (21-32); CHLORIDE LEVEL 102 MEQ/L (98-107); CREATININE FOR GFR 0.83 MG/DL (0.70-1.30); GLOMERULAR FILTRATION RATE > 60.0 (>49); GLUCOSE, FASTING 95 MG/DL (80-110); POTASSIUM SERUM 3.8 MEQ/L (3.5-5.1); SODIUM LEVEL 139 MEQ/L (136-145)
[2016-06-14] MEDS: SYMBICORT 160/4.5MCG INHALER 6GM INH SCH (09:05)
[2016-06-14 09:17] VITALS: BP 141/95
[2016-06-14] MEDS: OMEPRAZOLE 20 MG CAP PO SCH (09:17)
[2016-06-14] MEDS: CitaloPRAM (CeleXA) 10 MG TABLET PO SCH (09:17)
[2016-06-14] MEDS: CLOPIDOGREL 75 MG TAB PO SCH (09:17)
[2016-06-14] MEDS: LOSARTAN 50 MG TAB PO SCH (09:17)
[2016-06-14] MEDS: TAMSULOSIN 0.4 MG CAP PO SCH (09:17)
[2016-06-14] MEDS: VITAMIN D 1,000 INTERNATIONAL UNITS TABLET PO SCH (09:18)
--- NOTE | 2016-06-14 09:36 | ECHO ---
DATE OF PROCEDURE: 06/13/2016 AGE: 66 GENDER: Male. REFERRING PHYSICIAN: Dr. Jody Earl. HEIGHT: 67 inches. WEIGHT: 239 pounds. BODY SURFACE AREA: 2.18 sq m. INPATIENT: PCU Room 3225. INDICATION: Transient ischemic attack (TIA). MEASUREMENTS: 2D MEASUREMENTS: RV - 3.9 cm LV- 4.4 cm Septum - 1.3 cm Posterior wall - 1.3 cm Aortic root - 3.9 cm Proximal ascending aorta - 4.0 cm LA - 4.3 cm LVEF - 65% DOPPLER MEASUREMENTS: AV - 1.6 m/s LVOT - 1.4 m/s LVOT diameter - 2.0 cm MV-E: 84 A: 100 EA ratio 0.8 Early mitral deacceleration time - 243 ms E-prime - 4.4 A-prime - 8 E/E prime ratio 19.2 PV - 0.85 m/s Pulmonary artery acceleration time - 109 ms RVSP - 35 mmHg IVC - 2.0 cm COMMENTS: Normal sinus rhythm without intraventricular conduction disturbance. Technically challenging study in light of the patient's body habitus but diagnostically useful information was still obtained. Mild to moderately dilated left atrium but normal left ventricular size. Right heart chamber sizes were upper limits of normal. LV wall thickness was mildly increased symmetrically. On real-time imaging from the parasternal and apical projections, wall motion was symmetrical and hyperkinetic. Slightly thickened mitral annulus but normal leaflet thickness and excursion with no posterior systolic buckling. Three equal size aortic cusps with marginally thickened cusp edges but adequate cusp separation. Mildly dilated aortic root and proximal ascending aorta. No apparent intracardiac mass or pericardial effusion. Color flow Doppler study taken from the parasternal and apical projection showed trace aortic, trace mitral and mild tricuspid insufficiency. Guided continuous wave Doppler of his aortic valve showed a normal peak systolic velocity against LV outflow tract obstruction. Pulsed and continuous wave Doppler of his LV inflow tract taken from the apical four-chamber projection showed normal diastolic filling velocities against mitral stenosis. There was more prominent late diastolic/atrial dependent filling pattern consistent with a degree of impaired LV diastolic function. This was confirmed by a prolonged early mitral deceleration time and tissue Doppler of his mitral annulus. Using pulsed and tissue Doppler of his mitral annulus, his estimated mean left atrial pressure was elevated at at least a 19 mmHg. Pulsed and continuous wave Doppler of his pulmonary trunk showed a normal peak systolic velocity against RV outflow tract obstruction. His pulmonary artery acceleration time was abbreviated consistent with a slightly elevated pulmonary vascular resistance. Guided continuous wave Doppler of his tricuspid valve allowed our estimation of his right ventricle systolic pressure (mildly increased). His inferior vena cava was upper limits of normal with normal respiratory collapse consistent with central venous pressure of approximately 10-15 mmHg. CONCLUSIONS: Unable to detect an intracardiac source of embolic material. Mild concentric left ventricular hypertrophy with hyperkinetic wall motion. Mild to moderately dilated left atrium with Doppler evidence of an impairment of LV diastolic function and estimated mean left atrial pressure. Normal right heart chamber sizes with Doppler evidence of mild pulmonary hypertension. IVC size upper limits of normal with normal respiratory collapse against a significantly elevated central venous pressure. Subtle aortic valvular sclerosis without stenosis and only trace insufficiency. Slightly thickened mitral annulus without functional valvular abnormality. Mildly dilated aortic root and proximal ascending aorta.
--- NOTE | 2016-06-15 00:30 | EDDOCDS ---
Physician Documentation [facility] Name: Wendy Hoang Age: 66 yrs Sex: Male : 1950 Arrival Date: 06/12/2016 Time: 14:16 Bed 18 Private MD: Raman Galaviz MD Disposition: 06/12/16 18:05 Hospitalization ordered by Jody Earl for Inpatient Admission. Preliminary diagnosis is Cerebral ischemia. - Bed requested for PCU. - Status is Inpatient Admission. nn1 - Condition is Stable. - Problem is new. - Symptoms are unchanged. Historical: - Allergies: Advair Diskus; Codeine Sulfate; PENICILLINS; Pulmicort; SULFA (SULFONAMIDES); TETRACYCLINES; - Home Meds: 1. alprazolam 0.25 mg Oral TbDL as needed 2. amlodipine 5 mg Oral tab once daily PT STATES NORMALLY TAKES AT HS 3. aspirin 81 mg Oral chew once daily 4. citalopram 10 mg Oral tab once daily 5. furosemide 20 mg Oral tab once daily 6. levocetirizine 5 mg oral tab once daily 7. losartan 50 mg oral tab 2 times per day 8. omeprazole 40 mg Oral cpDR once daily 9. pro Air 90 as needed 10. symbicort 160/4.5 2 puffs BID 11. tamsulosin 0.4 mg oral cp24 once daily 12. vit d 2000 daily - PMHx: COPD; Hypertension; Seizures; - PSHx: Rotator Cuff Repair- Right; - Social history: Smoking status: Patient/guardian denies using No barriers to communication noted, The patient speaks fluent Afghan. - Family history: Not pertinent. - : The pt / caregiver states he / she is not on anticoagulants. Home medication list is obtained from the patient, [employer] import data. - Exposure Risk Screening:: None identified. Vital Signs: 06/12 14:20 BP 172 / 97; Pulse 86; Resp 18 S; Temp 97.8(O); Pulse Ox 96% on R/A; Weight 106.59 kg / gr2 234.99 lbs (R); Height 5 ft. 7 in. (170.18 cm) (R); Pain 3/10; 14:40 BP 161 / 89 (auto/); kr3 14:42 Pulse 80 MON; Pulse Ox 95% ; kr3 15:10 BP 174 / 92 (auto/); ld5 15:10 Pulse 84 MON; Pulse Ox 95% ; ld5 15:40 BP 153 / 93 (auto/); ld5 15:40 Pulse 78 MON; Pulse Ox 95% ; ld5 16:10 BP 139 / 72 (auto/); ld5 16:10 Pulse 74 MON; Pulse Ox 95% ; ld5 16:40 BP 167 / 94 (auto/); ld5 16:41 Pulse 80 MON; Pulse Ox 96% ; ld5 17:10 BP 168 / 103 (auto/); ld5 17:10 Pulse 74 MON; Pulse Ox 95% ; ld5 17:40 BP 143 / 71 (auto/); ld5 17:40 Pulse 70 MON; Resp 18; Temp 97.9; Pulse Ox 93% ; ld5 18:10 BP 159 / 101 (auto/); nn1 18:11 Pulse 80 MON; Pulse Ox 95% ; nn1 18:38 BP 178 / 100 (auto/); ld5 18:38 Pulse 76 MON; Pulse Ox 95% ; ld5 18:53 BP 178 / 99 (auto/); nn1 18:53 Pulse 78 MON; Pulse Ox 96% ; nn1 20:33 BP 149 / 87 (auto/); nn1 20:34 Pulse 82 MON; Pulse Ox 95% ; nn1 20:40 BP 149 / 87; Pulse 78; Resp 18; Temp 96.4(O); Pulse Ox 93% on R/A; Pain 0/10; nn1 20:48 BP 161 / 93 (auto/); nn1 20:49 Pulse 78 MON; Pulse Ox 94% ; nn1 21:03 BP 166 / 96 (auto/); nn1 21:04 Pulse 76 MON; Pulse Ox 95% ; nn1 21:18 BP 145 / 90 (auto/); nn1 21:19 Pulse 78 MON; Pulse Ox 93% ; nn1 21:33 BP 143 / 87 (auto/); nn1 21:36 Pulse 72 MON; Pulse Ox 96% ; nn1 23:16 BP 159 / 85; Pulse 73; Resp 18; Temp 97.4(O); Pulse Ox 93% on R/A; Pain 0/10; nn1 14:20 Body Mass Index 36.81 (106.59 kg, 170.18 cm) gr2 MDM: 15:01 RN interventions must not delay CT ordered. ld5 15:01 Visiting Professor/Pulse Ox/q 15 min VS ordered. ld5 15:01 Accucheck ordered. ld5 15:01 IV Saline Lock ordered. ld5 15:01 Neuro VS q 15 Minutes ordered. ld5 15:01 Patient must be on CC stretcher and weighed via bed scale ordered. ld5 15:01 Rhythm Strip to chart ordered. ld5 15:01 Stroke assessment pack to bedside ordered. ld5 15:02 Basic Metabolic Profile Ordered. EDMS 15:02 CBC with Diff Ordered. EDMS 15:02 Partial Thromboplastin Time Ordered. EDMS 15:02 Prothrombin Time Profile\E\INR Ordered. EDMS 15:02 Chest, 1 View Ordered. EDMS 15:02 CT Head Without Contrast Ordered. EDMS 15:02 ECG WITH READING ER PHYS+CARDIAG ordered. EDMS 15:14 CARDIAC INJURY PROFILE Ordered. EDMS 15:14 TROPONIN Ordered. EDMS 15:24 BED REQUEST+ADM ordered. EDMS 15:31 Fingerstick Blood Sugar Ordered. EDMS 15:34 Financial registration complete. gjb 15:58 [facility] Payment Agreement was scanned into [employer] and attached to record. gjb 16:57 Basic Metabolic Profile Reviewed. ml 16:57 CBC with Diff Reviewed. ml 16:57 Partial Thromboplastin Time Reviewed. ml 16:57 Prothrombin Time Profile\E\INR Reviewed. ml 16:57 Type & Screen Reviewed. ml 16:57 CARDIAC INJURY PROFILE Reviewed. ml 16:57 TROPONIN Reviewed. ml 16:57 Fingerstick Blood Sugar Reviewed. ml 16:57 CT Head Without Contrast Reviewed. ml 16:57 Chest, 1 View Reviewed. ml 17:03 Acetaminophen Tablet 650 mg PO once ordered. ld5 17:04 REGULAR+DIET ordered. EDMS 18:37 Admission / Observation Status ordered. EDMS 18:37 2 GRAM SODIUM DIET ordered. EDMS 18:39 MRI Brain without Contrast Ordered. EDMS 18:39 MRA BRAIN W/O CONTRAST Ordered. EDMS 18:40 ECHOCARD,DOPPLER/COLOR FLOW ordered. EDMS 18:41 Duplex,carotid (complete) Ordered. EDMS 19:03 LORazepam 1 mg IVP once ordered. ld5 19:09 CARDIAC RISK PROFILE Ordered. EDMS 19:33 COMPLETE BLOOD COUNT Ordered. EDMS 19:33 BASIC METABOLIC PROFILE Ordered. EDMS 06/13 12:16 T-Sheet-- Draft Copy was scanned into [employer] and attached to record. gb 12:16 ECG/EKG was scanned into [employer] and attached to record. gb 12:16 Radiology Report was scanned into [employer] and attached to record. gb 12:17 Other: STROKE SCALE was scanned into [employer] and attached to record. gb Point of Care Testing: Blood Glucose: 06/12 15:24 Blood Glucose: 96 mg/dL; ld5 Ranges: Administered Medications: 17:07 Drug: Acetaminophen 650 mg [acetaminophen 325 mg tablet (2 tabs)] Route: PO; ld5 18:16 Follow up: Response: Pain is decreased ld5 19:10 Drug: LORazepam 1 mg [lorazepam 2 mg/mL injection solution (0.5 mL)] Route: IVP; Site: nn1 right antecubital; Signatures: Dispatcher [employer] EDUT Bisi Ingram MD MD ml Scott, Debra, RN RN dls Amada Rosado, [place] Reg Shamir Ortega, Geriatric Physician Unit ml3 Leti Henriquez RN RN ld5 Ishaan ConroyRN RN nn1 Aury Chavez The chart was reviewed and I authenticate all verbal orders and agree with the evaluation and treatment provided.Corrections: (The following items were deleted from the chart) 15:12 15:02 CARDIAC INJURY PROFILE+LAB ordered. EDMS EDMS 15:13 15:02 TROPONIN+LAB ordered. EDUT EDMS 15:25 15:01 Consult [facility]: Telemedicine Stroke Attending ordered. ld5 rs6 15:53 15:02 TYPE & SCREEN+BBK ordered. EDMS EDMS 19:09 18:57 CARDIAC RISK PROFILE ordered. EDUT EDMS Attachments: 15:58 [facility] Payment Agreement gjb 06/13 12:16 T-Sheet-- Draft Copy gb 12:16 ECG/EKG gb Chart Complete MTDD
--- NOTE | 2016-06-15 00:30 | EDDOCDS ---
Physician Documentation [facility] Name: Wendy Hoang Age: 66 yrs Sex: Male : 1950 Arrival Date: 06/12/2016 Time: 14:16 Bed 18 Private MD: Raman Galaviz MD Disposition: 06/12/16 18:05 Hospitalization ordered by Jody Earl for Inpatient Admission. Preliminary diagnosis is Cerebral ischemia. - Bed requested for PCU. - Status is Inpatient Admission. nn1 - Condition is Stable. - Problem is new. - Symptoms are unchanged. Historical: - Allergies: Advair Diskus; Codeine Sulfate; PENICILLINS; Pulmicort; SULFA (SULFONAMIDES); TETRACYCLINES; - Home Meds: 1. alprazolam 0.25 mg Oral TbDL as needed 2. amlodipine 5 mg Oral tab once daily PT STATES NORMALLY TAKES AT HS 3. aspirin 81 mg Oral chew once daily 4. citalopram 10 mg Oral tab once daily 5. furosemide 20 mg Oral tab once daily 6. levocetirizine 5 mg oral tab once daily 7. losartan 50 mg oral tab 2 times per day 8. omeprazole 40 mg Oral cpDR once daily 9. pro Air 90 as needed 10. symbicort 160/4.5 2 puffs BID 11. tamsulosin 0.4 mg oral cp24 once daily 12. vit d 2000 daily - PMHx: COPD; Hypertension; Seizures; - PSHx: Rotator Cuff Repair- Right; - Social history: Smoking status: Patient/guardian denies using No barriers to communication noted, The patient speaks fluent Ivorian. - Family history: Not pertinent. - : The pt / caregiver states he / she is not on anticoagulants. Home medication list is obtained from the patient, [employer] import data. - Exposure Risk Screening:: None identified. Vital Signs: 06/12 14:20 BP 172 / 97; Pulse 86; Resp 18 S; Temp 97.8(O); Pulse Ox 96% on R/A; Weight 106.59 kg / gr2 234.99 lbs (R); Height 5 ft. 7 in. (170.18 cm) (R); Pain 3/10; 14:40 BP 161 / 89 (auto/); kr3 14:42 Pulse 80 MON; Pulse Ox 95% ; kr3 15:10 BP 174 / 92 (auto/); ld5 15:10 Pulse 84 MON; Pulse Ox 95% ; ld5 15:40 BP 153 / 93 (auto/); ld5 15:40 Pulse 78 MON; Pulse Ox 95% ; ld5 16:10 BP 139 / 72 (auto/); ld5 16:10 Pulse 74 MON; Pulse Ox 95% ; ld5 16:40 BP 167 / 94 (auto/); ld5 16:41 Pulse 80 MON; Pulse Ox 96% ; ld5 17:10 BP 168 / 103 (auto/); ld5 17:10 Pulse 74 MON; Pulse Ox 95% ; ld5 17:40 BP 143 / 71 (auto/); ld5 17:40 Pulse 70 MON; Resp 18; Temp 97.9; Pulse Ox 93% ; ld5 18:10 BP 159 / 101 (auto/); nn1 18:11 Pulse 80 MON; Pulse Ox 95% ; nn1 18:38 BP 178 / 100 (auto/); ld5 18:38 Pulse 76 MON; Pulse Ox 95% ; ld5 18:53 BP 178 / 99 (auto/); nn1 18:53 Pulse 78 MON; Pulse Ox 96% ; nn1 20:33 BP 149 / 87 (auto/); nn1 20:34 Pulse 82 MON; Pulse Ox 95% ; nn1 20:40 BP 149 / 87; Pulse 78; Resp 18; Temp 96.4(O); Pulse Ox 93% on R/A; Pain 0/10; nn1 20:48 BP 161 / 93 (auto/); nn1 20:49 Pulse 78 MON; Pulse Ox 94% ; nn1 21:03 BP 166 / 96 (auto/); nn1 21:04 Pulse 76 MON; Pulse Ox 95% ; nn1 21:18 BP 145 / 90 (auto/); nn1 21:19 Pulse 78 MON; Pulse Ox 93% ; nn1 21:33 BP 143 / 87 (auto/); nn1 21:36 Pulse 72 MON; Pulse Ox 96% ; nn1 23:16 BP 159 / 85; Pulse 73; Resp 18; Temp 97.4(O); Pulse Ox 93% on R/A; Pain 0/10; nn1 14:20 Body Mass Index 36.81 (106.59 kg, 170.18 cm) gr2 MDM: 15:01 RN interventions must not delay CT ordered. ld5 15:01 Bead Forming Machine Set Up Operator/Pulse Ox/q 15 min VS ordered. ld5 15:01 Accucheck ordered. ld5 15:01 IV Saline Lock ordered. ld5 15:01 Neuro VS q 15 Minutes ordered. ld5 15:01 Patient must be on CC stretcher and weighed via bed scale ordered. ld5 15:01 Rhythm Strip to chart ordered. ld5 15:01 Stroke assessment pack to bedside ordered. ld5 15:02 Basic Metabolic Profile Ordered. EDMS 15:02 CBC with Diff Ordered. EDMS 15:02 Partial Thromboplastin Time Ordered. EDMS 15:02 Prothrombin Time Profile\E\INR Ordered. EDMS 15:02 Chest, 1 View Ordered. EDMS 15:02 CT Head Without Contrast Ordered. EDMS 15:02 ECG WITH READING ER PHYS+CARDIAG ordered. EDMS 15:14 CARDIAC INJURY PROFILE Ordered. EDMS 15:14 TROPONIN Ordered. EDMS 15:24 BED REQUEST+ADM ordered. EDMS 15:31 Fingerstick Blood Sugar Ordered. EDMS 15:34 Financial registration complete. gjb 15:58 [facility] [place] Agreement was scanned into [employer] and attached to record. gjb 16:57 Basic Metabolic Profile Reviewed. ml 16:57 CBC with Diff Reviewed. ml 16:57 Partial Thromboplastin Time Reviewed. ml 16:57 Prothrombin Time Profile\E\INR Reviewed. ml 16:57 Type & Screen Reviewed. ml 16:57 CARDIAC INJURY PROFILE Reviewed. ml 16:57 TROPONIN Reviewed. ml 16:57 Fingerstick Blood Sugar Reviewed. ml 16:57 CT Head Without Contrast Reviewed. ml 16:57 Chest, 1 View Reviewed. ml 17:03 Acetaminophen Tablet 650 mg PO once ordered. ld5 17:04 REGULAR+DIET ordered. EDMS 18:37 Admission / Observation Status ordered. EDMS 18:37 2 GRAM SODIUM DIET ordered. EDMS 18:39 MRI Brain without Contrast Ordered. EDMS 18:39 MRA BRAIN W/O CONTRAST Ordered. EDMS 18:40 ECHOCARD,DOPPLER/COLOR FLOW ordered. EDMS 18:41 Duplex,carotid (complete) Ordered. EDMS 19:03 LORazepam 1 mg IVP once ordered. ld5 19:09 CARDIAC RISK PROFILE Ordered. EDMS 19:33 COMPLETE BLOOD COUNT Ordered. EDMS 19:33 BASIC METABOLIC PROFILE Ordered. EDMS 06/13 12:16 T-Sheet-- Draft Copy was scanned into [employer] and attached to record. gb 12:16 ECG/EKG was scanned into [employer] and attached to record. gb 12:16 Radiology Report was scanned into [employer] and attached to record. gb 12:17 Other: STROKE SCALE was scanned into [employer] and attached to record. gb Point of Care Testing: Blood Glucose: 06/12 15:24 Blood Glucose: 96 mg/dL; ld5 Ranges: Administered Medications: 17:07 Drug: Acetaminophen 650 mg [acetaminophen 325 mg tablet (2 tabs)] Route: PO; ld5 18:16 Follow up: Response: Pain is decreased ld5 19:10 Drug: LORazepam 1 mg [lorazepam 2 mg/mL injection solution (0.5 mL)] Route: IVP; Site: nn1 right antecubital; Signatures: Dispatcher [employer] EDVT Bisi Ingram MD MD ml Scott, Debra, RN RN dls Amada Rosado, [place] Reg Shamir Ortega, [employer] ml3 Leti Henriquez RN RN ld5 Ishaan ConroyRN RN nn1 Aury Chavez The chart was reviewed and I authenticate all verbal orders and agree with the evaluation and treatment provided.Corrections: (The following items were deleted from the chart) 15:12 15:02 CARDIAC INJURY PROFILE+LAB ordered. EDMS EDMS 15:13 15:02 TROPONIN+LAB ordered. EDVT EDMS 15:25 15:01 Consult [facility]: Telemedicine Stroke Attending ordered. ld5 rs6 15:53 15:02 TYPE & SCREEN+BBK ordered. EDMS EDMS 19:09 18:57 CARDIAC RISK PROFILE ordered. EDVT EDMS Attachments: 15:58 [facility] [place] Agreement gjb 06/13 12:16 T-Sheet-- Draft Copy gb 12:16 ECG/EKG gb Chart Complete MTDD
--- NOTE | 2016-06-15 00:31 | EDDOCDS ---
Nurse's Notes [facility] Name: Wendy Hoang Age: 66 yrs Sex: Male : 1950 Arrival Date: 06/12/2016 Time: 14:16 Bed 18 Private MD: Raman Galaviz MD Diagnosis: Cerebral ischemia Presentation: 06/12 14:22 Presenting complaint: Patient states: Pt presents with c/o left sided weakness and dls feeling dizzy since shortly after 12 noon. Pt recently treated for ear infection. Pt woke up from sleeping in chair difficulty walking weakness left arm and leg denies chest pain c/o slight headache pt has hx of hypertension. Speech is clear. The last date and time the patient was known to be well was was at 10:00 on June 12, 2016. Adult Sepsis Screening: The patient does not have new or worsening altered mentation. Patient's respiratory rate is less than 22. Systolic blood pressure is greater than 100. Patient has a qSOFA score of 0- Negative Sepsis Screen. Suicide/Homicide risk assessment- the patient denies having any suicidal and/or homicidal ideations and does not present with any other emotional, behavioral or mental health complaints. Status: Patient is not a representative personal service or dependent. Transition of care: patient was not received from another setting of care. 14:22 Acuity: TIFFANY Level 2 dls 14:22 Method Of Arrival: Walkin/Carried/Asstd dls Triage Assessment: 14:29 The onset of the patients symptoms was less than three hours ago. General: Appears dls obese, uncomfortable, well developed, Behavior is cooperative. Pain: Pain currently is 2 out of 10 on a pain scale. Neurological: Level of Consciousness is awake, alert, Oriented to person, place, time, Reports a syncopal episode weakness. Historical: - Allergies: Advair Diskus; Codeine Sulfate; PENICILLINS; Pulmicort; SULFA (SULFONAMIDES); TETRACYCLINES; - Home Meds: 1. alprazolam 0.25 mg Oral TbDL as needed 2. amlodipine 5 mg Oral tab once daily PT STATES NORMALLY TAKES AT HS 3. aspirin 81 mg Oral chew once daily 4. citalopram 10 mg Oral tab once daily 5. furosemide 20 mg Oral tab once daily 6. levocetirizine 5 mg oral tab once daily 7. losartan 50 mg oral tab 2 times per day 8. omeprazole 40 mg Oral cpDR once daily 9. pro Air 90 as needed 10. symbicort 160/4.5 2 puffs BID 11. tamsulosin 0.4 mg oral cp24 once daily 12. vit d 2000 daily - PMHx: COPD; Hypertension; Seizures; - PSHx: Rotator Cuff Repair- Right; - Social history: Smoking status: Patient/guardian denies using No barriers to communication noted, The patient speaks fluent Moldovan. - Family history: Not pertinent. - : The pt / caregiver states he / she is not on anticoagulants. Home medication list is obtained from the patient, [employer] import data. - Exposure Risk Screening:: None identified. Screenin:29 Screening information is obtained from the patient, prior medical records. Fall risk: nn1 No risks identified. Assistance ADL's: requires no assistance with activities of daily living. Abuse/DV Screen: The patient / caregiver reports he/she is: not in a situation that causes fear, pain or injury. Nutritional screening: No deficits noted. Advance Directives: There is no active DNR order. home support is adequate. Assessment: 14:49 Reassessment: Patient appears in no apparent distress at this time. Pain: Denies pain. kr3 Neurological: Level of Consciousness is awake, alert, Weight Control Engineer are equal bilaterally Speech is normal, Facial symmetry appears normal, Reports numbness to left arm/hand and left leg which has improved. Reports at home had difficulty moving left leg but now walking with no difficulty.. Respiratory: Respiratory effort is even, unlabored. Derm: Skin is pink, warm & dry. 15:20 General: Appears in no apparent distress, Behavior is cooperative. Pain: Denies pain. ld5 Neurological: Level of Consciousness is awake, alert, obeys commands, Oriented to person, place, time, Weight Control Engineer are equal bilaterally Moves all extremities. Speech is normal, Facial symmetry appears normal, Pt reports numbness to left leg when standing but denies when laying down. Respiratory: Airway is patent Respiratory effort is even, unlabored. GI: Abdomen is obese, Bowel sounds present X 4 quads. Abd is soft and non tender X 4 quads. Denies nausea, vomiting. 15:45 General: Pt laying comfortably bed. Awaiting results. Denies any needs at this time. ld5 Will continue to monitor. 16:00 General: Appears in no apparent distress, Behavior is cooperative. Neurological: Level ld5 of Consciousness is awake, alert, Oriented to person, place, time. 16:15 General: Pt laying quietly in ed. Bed repositioned for comfort. Pt alert and oriented ld5 x3. 16:55 General: Appears in no apparent distress, Behavior is appropriate for age, cooperative. ld5 Neurological: Level of Consciousness is awake, alert, obeys commands. Respiratory: Airway is patent Respiratory effort is even, unlabored. 17:07 General: Pt requesting medication for headache. Pt medicated per orders. Lights dimmed ld5 for comfort. Will continue to monitor. 17:45 General: Pt laying quietly in bed. No apparent distress. Reports decrease in headache. ld5 Respirations easy and unlabored. Family member at bedside. Will continue to monitor. 18:15 General: Dinner tray provided. Pt sitting up in bed. Call panchal within reach. Will ld5 continue to monitor. 18:40 General: Pt finished dinner. Tolerated well. Reports headache continues to decrease. ld5 Denies any needs. Bed repositioned for comfort. Call panchal within reach. Will continue to monitor. 18:41 General: Pt's BP trending up but pt denies any change in symptoms. Will continue to ld5 monitor. 19:12 General: Patient medicated prior to MRI, patient in no distress at this time. . nn1 20:41 General: Appears in no apparent distress, comfortable, Behavior is appropriate for age, nn1 cooperative. Pain: Denies pain. Neurological: Level of Consciousness is awake, alert, obeys commands, Oriented to person, place, time. 21:53 General: Patient informed about disposition, patient awaiting to be moved to PCU. nn1 Patient watching basketball game. In no distress at this time. . Respiratory: Airway is patent Respiratory effort is even, unlabored, Respiratory pattern is regular. Derm: Skin is pink, warm & dry. 22:28 General: Per PCU bed is still dirty. . Neurological: Level of Consciousness is awake, nn1 alert, obeys commands, Oriented to person, place, time, Moves all extremities. Facial symmetry appears normal. Respiratory: Airway is patent Respiratory effort is even, unlabored, Respiratory pattern is regular. Derm: Skin is pink, warm & dry. 23:27 General: Appears in no apparent distress, comfortable, Behavior is appropriate for age, nn1 cooperative, Patient denies dizziness, asymptomatic at this time. Patient receptive to admission.. Neurological: Level of Consciousness is awake, alert, Oriented to person, place, time. Respiratory: Airway is patent Respiratory effort is even, unlabored, Respiratory pattern is regular. Derm: Skin is pink, warm & dry. Vital Signs: 14:20 BP 172 / 97; Pulse 86; Resp 18 S; Temp 97.8(O); Pulse Ox 96% on R/A; Weight 106.59 kg gr2 (R); Height 5 ft. 7 in. (170.18 cm) (R); Pain 3/10; 14:40 BP 161 / 89 (auto/); kr3 14:42 Pulse 80 MON; Pulse Ox 95% ; kr3 15:10 BP 174 / 92 (auto/); ld5 15:10 Pulse 84 MON; Pulse Ox 95% ; ld5 15:40 BP 153 / 93 (auto/); ld5 15:40 Pulse 78 MON; Pulse Ox 95% ; ld5 16:10 BP 139 / 72 (auto/); ld5 16:10 Pulse 74 MON; Pulse Ox 95% ; ld5 16:40 BP 167 / 94 (auto/); ld5 16:41 Pulse 80 MON; Pulse Ox 96% ; ld5 17:10 BP 168 / 103 (auto/); ld5 17:10 Pulse 74 MON; Pulse Ox 95% ; ld5 17:40 BP 143 / 71 (auto/); ld5 17:40 Pulse 70 MON; Resp 18; Temp 97.9; Pulse Ox 93% ; ld5 18:10 BP 159 / 101 (auto/); nn1 18:11 Pulse 80 MON; Pulse Ox 95% ; nn1 18:38 BP 178 / 100 (auto/); ld5 18:38 Pulse 76 MON; Pulse Ox 95% ; ld5 18:53 BP 178 / 99 (auto/); nn1 18:53 Pulse 78 MON; Pulse Ox 96% ; nn1 20:33 BP 149 / 87 (auto/); nn1 20:34 Pulse 82 MON; Pulse Ox 95% ; nn1 20:40 BP 149 / 87; Pulse 78; Resp 18; Temp 96.4(O); Pulse Ox 93% on R/A; Pain 0/10; nn1 20:48 BP 161 / 93 (auto/); nn1 20:49 Pulse 78 MON; Pulse Ox 94% ; nn1 21:03 BP 166 / 96 (auto/); nn1 21:04 Pulse 76 MON; Pulse Ox 95% ; nn1 21:18 BP 145 / 90 (auto/); nn1 21:19 Pulse 78 MON; Pulse Ox 93% ; nn1 21:33 BP 143 / 87 (auto/); nn1 21:36 Pulse 72 MON; Pulse Ox 96% ; nn1 23:16 BP 159 / 85; Pulse 73; Resp 18; Temp 97.4(O); Pulse Ox 93% on R/A; Pain 0/10; nn1 14:20 Body Mass Index 36.81 (106.59 kg, 170.18 cm) gr2 Vitals: 14:20 Log In Time: June 12, 2016 at 14:20. gr2 ED Course: 14:19 Patient visited by Brenna Mcbride. gr2 14:19 Raman Galaviz is Private Physician. gr2 14:19 Patient moved to Waiting gr2 14:21 Patient visited by Brenna Mcbride. gr2 14:21 Patient moved to Pre RCE gr2 14:26 Triage Initiated dls 14:30 Teodora Lucio,RN is Primary Nurse. dls 14:30 Patient moved to 18 dls 14:49 Inserted saline lock: 20 gauge in right antecubital area and blood collected. The kr3 patient tolerated the procedure well. 14:50 The patient / caregiver is instructed regarding the plan of care and ED course. kr3 Accompanied by Family Member, Patient has correct armband on for positive identification. Placed in gown. Bed in low position. Call light in reach. Side rails up X2. monitoring analyst on. Pulse ox on. NIBP on. 14:55 Bisi Ingram MD is Attending Physician. ml 14:56 Patient visited by Bisi Ingram MD. ml 15:05 Basic Metabolic Profile Sent. ld5 15:05 CBC with Diff Sent. ld5 15:05 Partial Thromboplastin Time Sent. ld5 15:05 Prothrombin Time Profile\E\INR Sent. ld5 15:10 EKG done. (by ED staff). Reviewed by Bisi Ingram MD. ar3 15:14 Patient visited by Baylee Flores PCA. ar3 15:23 TROPONIN Sent. ld5 15:24 CARDIAC INJURY PROFILE Sent. ld5 15:32 CT Head Without Contrast Returned. EDMS 15:46 Patient visited by Leti Henriquez,ANGELO. ld5 15:58 [facility] Payment Agreement was scanned into [employer] and attached to record. gjb 16:07 Chest, 1 View Returned. EDMS 16:56 Patient visited by Leti Henriquez,ANGELO. ld5 17:08 Patient visited by Leti Henriquez,ANGELO. ld5 17:41 Patient visited by Leti Henriquez,ANGELO. ld5 18:05 Jody Earl is Hospitalizing Provider. ml 18:16 Patient visited by Leti Henriquez RN. ld5 18:43 Patient visited by Leti Henriquez,ANGELO. ld5 20:47 MRA BRAIN W/O CONTRAST Returned. EDMS 20:47 MRI Brain without Contrast Returned. EDMS 23:17 No procedures done that require assistance. nn1 06/13 12:16 T-Sheet-- Draft Copy was scanned into [employer] and attached to record. gb 12:16 ECG/EKG was scanned into [employer] and attached to record. gb 12:16 Radiology Report was scanned into [employer] and attached to record. gb 12:17 Other: STROKE SCALE was scanned into [employer] and attached to record. gb Administered Medications: 06/12 17:07 Drug: Acetaminophen 650 mg [acetaminophen 325 mg tablet (2 tabs)] Route: PO; ld5 18:16 Follow up: Response: Pain is decreased ld5 19:10 Drug: LORazepam 1 mg [lorazepam 2 mg/mL injection solution (0.5 mL)] Route: IVP; Site: nn1 right antecubital; Point of Care Testing: Blood Glucose: 15:24 Blood Glucose: 96 mg/dL; ld5 Ranges: Order Results: Lab Order: Basic Metabolic Profile; SPEC'M 06/12/16 14:47 Test: GLUCOSE, FASTING; Value: 94; Range: 80-110; Units: MG/DL; Status: F Test: BLOOD UREA NITROGEN; Value: 23; Range: 7-18; Abnormal: Above high normal; Units: MG/DL; Status: F Test: CREATININE FOR GFR; Value: 0.87; Range: 0.70-1.30; Units: MG/DL; Status: F Test: GLOMERULAR FILTRATION RATE; Value: > 60.0; Range: >49; Status: F Test: SODIUM LEVEL; Value: 142; Range: 136-145; Units: MEQ/L; Status: F Test: POTASSIUM SERUM; Value: 4.0; Range: 3.5-5.1; Units: MEQ/L; Status: F Test: CHLORIDE LEVEL; Value: 106; Range: 98-107; Units: MEQ/L; Status: F Test: CARBON DIOXIDE LEVEL; Value: 28; Range: 21-32; Units: MEQ/L; Status: F Test: ANION GAP; Value: 8; Range: 8-16; Units: MEQ/L; Status: F Test: CALCIUM LEVEL; Value: 8.8; Range: 8.8-10.2; Units: MG/DL; Status: F Test Note: ; Units are mL/min/1.73 m2 Chronic Kidney Disease Staging per NKF: Stage I & II GFR >=60 Normal to Mildly Decreased Stage III GFR 30-59 Moderately Decreased Stage IV GFR 15-29 Severely Decreased Stage V GFR <15 Very Little GFR Left ESRD GFR <15 on GASTROENTEROLOGY NURSE Test: TRIGLYCERIDES LEVEL; Range: <150; Units: MG/DL; Status: I Test: CHOLESTEROL LEVEL; Range: <200; Units: MG/DL; Status: I Test: HDL CHOLESTEROL; Range: >40; Units: MG/DL; Status: I Test: LDL CHOLESTEROL; Range: <100; Units: MG/DL; Status: I Test: NON-HDL-C; Units: MG/DL; Status: I Test: CHOLESTEROL RISK RATIO; Range: <5; Status: I Lab Order: CBC with Diff; SPEC'M 06/12/16 14:47 Test: WHITE BLOOD COUNT; Value: 5.4; Range: 4.0-10.0; Units: K/mm3; Status: F Test: RED BLOOD COUNT; Value: 4.55; Range: 4.30-6.10; Units: M/mm3; Status: F Test: HEMOGLOBIN; Value: 13.0; Range: 14.0-18.0; Abnormal: Below low normal; Units: g/dl; Status: F Test: HEMATOCRIT; Value: 38.8; Range: 42.0-52.0; Abnormal: Below low normal; Units: %; Status: F Test: MEAN CORPUSCULAR VOLUME; Value: 85.3; Range: 80.0-96.0; Units: fl; Status: F Test: MEAN CORPUSCULAR HEMOGLOBIN; Value: 28.6; Range: 27.0-33.0; Units: pg; Status: F Test: MEAN CORPUSCULAR HGB CONC; Value: 33.6; Range: 32.0-36.5; Units: g/dl; Status: F Test: RED CELL DISTRIBUTION WIDTH; Value: 13.1; Range: 11.5-14.5; Units: %; Status: F Test: PLATELET COUNT, AUTOMATED; Value: 185; Range: 150-450; Units: k/mm3; Status: F Test: NEUTROPHILS %; Value: 60.7; Range: 36.0-66.0; Units: %; Status: F Test: LYMPH %; Value: 24.0; Range: 24.0-44.0; Units: %; Status: F Test: MONO %; Value: 8.6; Range: 0.0-5.0; Abnormal: Above high normal; Units: %; Status: F Test: EOS %; Value: 2.3; Range: 0.0-3.0; Units: %; Status: F Test: BASO %; Value: 0.9; Range: 0.0-1.0; Units: %; Status: F Test: LARGE UNSTAINED CELL %; Value: 3.5; Range: 0.0-4.0; Units: %; Status: F Test: NEUTROPHILS #; Value: 3.3; Range: 1.8-7.7; Units: K/mm3; Status: F Test: LYMPH #; Value: 1.5; Range: 1.5-4.5; Units: K/mm3; Status: F Test: MONO #; Value: 0.5; Range: 0.0-0.8; Units: K/mm3; Status: F Test: EOS #; Value: 0.1; Range: 0.0-0.50; Units: K/mm3; Status: F Test: BASO #; Value: 0.0; Range: 0.0-0.2; Units: K/mm3; Status: F Test: LARGE UNSTAINED CELL #; Value: 0.2; Range: 0.0-0.4; Units: K/mm3; Status: F Lab Order: Partial Thromboplastin Time; [facility] 06/12/16 14:47 Test: PARTIAL THROMBOPLASTIN TIME; Value: 26.7; Range: 26.6-37.1; Units: SECONDS; Status: F Lab Order: Prothrombin Time Profile\E\INR; [facility] 06/12/16 14:47 Test: PROTHROMBIN TIME; Value: 13.9; Range: 12.3-14.5; Units: SECONDS; Status: F Test: INR; Value: 1.06; Status: F Test Note: ; THERAPUTIC HUMAN INR VALUES INDICATIONS NORMAL RANGES PROPHYLAXIS/TREATMENT OF: VENOUS THROMBOSIS 2.0-3.0 PULMONARY EMBOLISM 2.0-3.0 PREVENTION OF SYSTEMIC EMBOLISM FROM: TISSUE HEART VALVES 2.0-3.0 ACUTE MYOCARDIAL INFARCTION 2.0-3.0 VALVULAR HEART DISEASE 2.0-3.0 ATRIAL FIBRILLATION 2.0-3.0 MECHANICAL VALVES(HIGH RISK) 2.5-3.5 RECURRENT MYOCARDIAL INFARCTION 2.5-3.5 Lab Order: Type & Screen; [facility] 06/12/16 15:21 Test: BLOOD TYPE; Value: AP; Status: F Test: AB SCREEN GEL MANUAL; Value: NEGATIVE; Status: F Lab Order: CARDIAC INJURY PROFILE; [facility] 06/12/16 14:47 Test: CPK CREATINE PHOSPHOKINASE; Value: 143; Range: 39-308; Units: U/L; Status: F Test: CK-MB VALUE MASS; Value: 2.7; Range: 0.0-3.6; Units: NG/ML; Status: F Test: MB/CK RELATIVE INDEX; Value: 1.88; Range: < OR =4; Status: F Test Note: ; DIAGNOSIS CRITERIA MMB ng/ml Relative Index (RI) NON-AMI < or = 5 N/A [place] > 5 < or = 4 AMI > 5 > 4 Lab Order: TROPONIN; [facility] 06/12/16 14:47 Test: TROPONIN I; Value: < 0.02; Range: < 0.10; Units: NG/ML; Status: F Test Note: ; Troponin I Reference Interval for Siemens [place] LOCI: 99th Percentile= 0.00-0.045 ng/ml Risk Stratification: <= 0.10 ng/ml Decreased Risk for Adverse Clinical Events. 0.10-1.50 ng/ml Increased Risk for Adverse Clinical Events. Evaluation of additional criterion and/or repeat testing in 2-6 hours is suggested to rule out myocardial damage. >= 1.50 ng/ml Indicative of Myocardial Injury. Lab Order: Fingerstick Blood Sugar; SPEC'M 06/12/16 15:22 Test: BEDSIDE GLUCOSE; Value: 96; Range: 80-115; Units: MG/DL; Status: F Lab Order: CARDIAC RISK PROFILE; SPEC'M 06/12/16 14:47 Test: TRIGLYCERIDES LEVEL; Value: 192; Range: <150; Abnormal: Above high normal; Units: MG/DL; Status: F Test: CHOLESTEROL LEVEL; Value: 162; Range: <200; Units: MG/DL; Status: F Test: HDL CHOLESTEROL; Value: 32; Range: >40; Abnormal: Below low normal; Units: MG/DL; Status: F Test: LDL CHOLESTEROL; Value: 91.6; Range: <100; Units: MG/DL; Status: F Test: NON-HDL-C; Value: 130; Units: MG/DL; Status: F Test: CHOLESTEROL RISK RATIO; Value: 5.062; Range: <5; Abnormal: Above high normal; Status: F Radiology Order: CT Head Without Contrast Test: CT Head Without Contrast REASON FOR EXAMINATION: CVA <4.5hrs; Clinical: Acute cerebrovascular accident (< 4.5 hours).; ; Comparison: None .; ; Findings:; The ventricles, sulci, and cisterns are normal in position and appearance.; Walters-white differentiation is maintained. No acute intracranial hemorrhage,; mass/mass effect, pathology or trauma/injury. No evidence for acute infarction.; No extra-axial fluid collection. Calvarium is intact. Paranasal sinuses and; mastoid air cells are clear.; ; Impression:; Normal noncontrast head CT.; No evidence for acute intracranial pathology, hemorrhage or trauma/injury.; ; ; Signed by; Luis Enrique Barnes MD 06/12/2016 03:12 P; Radiology Order: Chest, 1 View Test: Chest, 1 View REASON FOR EXAMINATION: CVA <4.5hrs; Clinical: Acute cerebrovascular accident.; ; Comparison: 03/11/2015 .; ; Findings:; The mediastinum and cardiac silhouette are stable and within normal limits for; portable technique. The lung lee are clear without acute consolidation,; effusion, or pneumothorax. Skeletal structures are intact.; ; Impression:; Normal portable chest x-ray; ; ; Signed by; Luis Enrique Barnes MD 06/12/2016 03:28 P; Radiology Order: MRI Brain without Contrast Test: MRI Brain without Contrast REASON FOR EXAMINATION: stroke/TIA; ; MRI of the brain; Clinical history: dizziness.; Technique: Multiecho multiplanar MRI images of the brain were obtained without administration of cont; rast. Diffusion weighted images with ADC mapping was also obtained.; Findings:; The ventricles and sulci are symmetric bilaterally. The brain parenchyma demonstrates uniform and nor; mal signal on all sequences. However, there is an area restricted diffusion in the subcortical white; matter in the right posterior parietal lobe. There is no midline shift, mass effect, or extra-axial f; luid collection. The midline intracranial structures do not demonstrate any gross abnormalities. The; cervical cranial junction is intact. The orbits are unremarkable. The visualized paranasal sinuses an; d mastoid air cells are clear. The osseous structures and superficial soft tissues are unremarkable.; The vascular structures demonstrate appropriate flow voids.; Impression: Findings consistent with a small focal acute infarct in the subcortical white matter of t; he posterior right parietal lobe.; A call was placed to the facility, but the patient was being transferred. Later attempted call will; be performed.; ; Radiology Order: MRA BRAIN W/O CONTRAST Test: MRA BRAIN W/O CONTRAST REASON FOR EXAMINATION: stroke/TIA; ; MR angiogram of the brain; Clinical history: dizziness.; Technique: Hsel-rd-whhtby MRA images of the brain were obtained without administration of contrast. 3; -D MIP images were also obtained.; Findings: The vascular structures extending from the distal carotid and vertebrobasilar arterial syst; ems, through the [place] of [place], demonstrate normal caliber and contour. There is no evidence of an; eurysm, stenosis, or thrombosis.; Impression: Unremarkable MRA examination of the brain.; ; Outcome: 18:05 Decision to Hospitalize by Provider. 23:17 Discharge Assessment: Patient awake, alert and oriented x 3. No cognitive and/or nn1 functional deficits noted. Patient verbalized understanding of disposition instructions. patient administered narcotics - yes. Patient was admitted to the hospital or transferred to another facility. The following High Risk Discharge criteria are identified: None. Admitted to PCU accompanied by nurse, accompanied by tech, family with patient, via stretcher, on monitor, with chart. Condition: stable. CT Study completed. MRI Study completed. Admission hand-off: Report Faxed Fax receipt verified by ANGELO [employer]. Property :Personal belongings accompany Pt. 23:29 Patient left the ED. nn1 Signatures: Dispatcher [employer] EDMS Bisi Ingram MD MD ml Scott, Debra, RN RN dls Amada Rosado, Reg Reg Teodora MatthewsRN RN kr3 Baylee Flores, UNEMPLOYMENT SPECIALIST UNEMPLOYMENT SPECIALIST ar3 Leti Henriquez RN RN ld5 Brenna Mcbride gr2 Ishaan Conroy RN RN nn1 Aury Chavez Corrections: (The following items were deleted from the chart) 15:12 15:05 CARDIAC INJURY PROFILE+LAB sent. ld5 EDMS 15:13 15:05 TROPONIN+LAB sent. 5 EDVA 15:53 15:24 TYPE & SCREEN+BBK sent. ld5 EDMS Chart Complete MTDD
--- NOTE | 2016-06-15 07:19 | CR ---
DATE OF CONSULTATION: 06/14/2016 REFERRING PHYSICIAN: Dr. Jody Earl. REASON FOR CONSULTATION: Stroke. HISTORY OF PRESENT ILLNESS: Wendy Hoang is a 66-year-old man with history of chronic pulmonary obstructive disease (COPD), obstructive sleep apnea syndrome who presented to [facility], [place] on June 12 for left-sided weakness. The patient stated that he was taking a nap for one hour and one-half and he woke up between 12:30 to 1:00 o'clock with left arm and leg weakness and numbness. He did not remember the onset of his symptoms. The patient felt that his head was full without any visual or auditory changes. In the emergency department his blood pressure was 172/97. His symptoms lasted for two hours resolved. In 2014 he had left-sided facial and shoulder numbness and was evaluated in [place] and his tests were unremarkable. He has been taking aspirin since then. He denies any neck or back pain. He currently complains of his sinus headache. He denies any seizures, falls, loss of consciousness, dysphagia, dysarthria, diplopia or urinary incontinence. PAST MEDICAL HISTORY: 1. Obstructive sleep apnea syndrome. 2. COPD. 3. Single seizure in 1991. 4. Dyslipidemia. 5. Hiatal hernia. 6. Acid reflux. 7. Arteriovenous malformation of stomach. 8. Iron-deficiency anemia. 9. Carpal tunnel repair. 10. Lumbosacral spinal fusion. 11. Right shoulder surgery. ALLERGIES: PENICILLIN, SULFA, TETRACYCLINE, CODEINE. SOCIAL HISTORY: He drinks alcohol occasionally. He quit smoking in 1985. 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 FAMILY HISTORY: Mother had stroke. REVIEW OF SYSTEMS: All systems were reviewed and found to be noncontributory except as mentioned in history present illness. PHYSICAL EXAMINATION: VITAL SIGNS: Temperature 98.6, pulse 75, respiratory 14, blood pressure 141/95, 96% saturation on room air. HEART: Regular rate and rhythm. LUNGS: Clear to auscultation. ABDOMEN: Soft, nontender, nondistended. NEUROLOGIC EXAMINATION: The patient is awake, alert, oriented to place, person and time. Normal speech, comprehension and repetition. Extraocular muscles are intact. No facial weakness. Tongue: Uvula midline. 5/5 strength in all four extremities. Deep tendon reflexes 2+ throughout. Normal sensation. No dysmetria or ataxia. Gait is normal. Romberg testing is negative. DIAGNOSTIC STUDIES: His MRI scan of brain was reviewed and showed a small right parietal and deep cerebral white matter ischemic stroke. Carotid ultrasound showed less than 50% bilateral carotid artery stenosis. MRA of brain was within normal limits. His echocardiogram report is pending. ASSESSMENT: 1. Small ischemic right parietal and deep cerebral white matter ischemic stroke. 2. Hypertension. 3. Chronic pulmonary obstructive disease (COPD) and obstructive sleep apnea syndrome. PLAN: 1. Discontinue aspirin and start Plavix 75 mg by mouth daily. 2. Crestor 20 mg by mouth daily. 3. Await report of his echocardiogram. 4. Follow with our office in two weeks after hospital discharge. cc: Jody Earl DO
--- NOTE | 2016-06-20 09:29 | DSES ---
DATE OF ADMISSION: 06/13/2016 DATE OF DISCHARGE: 06/14/2016 PRIMARY CARE PROVIDER: Dr. Galaviz PRIMARY DIAGNOSIS AT DISCHARGE: Acute subcortical right posterior parietal infarct. SECONDARY DIAGNOSES AT DISCHARGE: 1. Obstructive sleep apnea. 2. Chronic obstructive pulmonary disease. 3. Hyperlipidemia. 4. Hiatal hernia. 5. Seizure disorder. 6. Benign prostatic hyperplasia (BPH). 7. Gastroesophageal reflux disease. 8. 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 Iron-deficiency anemia. PROCEDURES PERFORMED: 1. CT head 2. Brain MRA, MRI 3. Carotid duplex ultrasound. HOSPITAL COURSE: Mr. Hoang was admitted to the PCU after being evaluated in the emergency room for the left upper and left lower extremity weakness, numbness, and heaviness that lasted for approximately 1 hour and resolved prior to presentation to the emergency room. When he arrived to the emergency room, he had no focal neurologic deficits. A head CT did not demonstrate any acute hemorrhage. He was admitted to the PCU for further workup. He did have a brain MRI, which was significant for a new acute focal infarct located in the subcortical white matter of the posterior right parietal lobe. Brain MRI did not demonstrate any stenosis, thrombosis, or aneurysms. Carotid duplex ultrasound was also obtained and was completely unremarkable for clinical stenosis. He underwent physical therapy and did not have recurrence of his symptoms. Initially his antihypertensive medications were held to allow for permissive hypertension; however, they were reinstituted upon discharge as his blood pressures were in the 150-160 range. Neurology was consulted and recommended outpatient followup. They also did review his imaging studies and recommended discontinuation of aspirin in favor of Plavix. The only other medication change made during this hospitalization was initiation of a high intensity statin. Followup was arranged for neurology upon discharge. The remainder of his chronic medical conditions were treated per his home regimen and did not have any acute issues. PHYSICAL EXAMINATION AT DISCHARGE: (there is no normal for an examination in the system). LABORATORY FINDINGS AT DISCHARGE: CBC: White blood cell count 5.0, hemoglobin 14.0, hematocrit 42.0, platelets 193. Comprehensive basic metabolic profile: Sodium 140, potassium 3.4, chloride 104, bicarb 29, BUN 15, creatinine 0.75, glucose 93, calcium 8.5. SIGNIFICANT IMAGING STUDIES: Noncontrast head CT obtained in the ER did not demonstrate any acute pathology or hemorrhage. Brain MRI significant for an area of restricted diffusion in the subcortical white matter in the right posterior parietal lobe. No associated midline shift, mass effect, or fluid collection. Brain MRA: Vascular structures extending from the distal carotid and vertebral basilar arterial system through the [place] of [place] demonstrate normal caliber and contour. Duplex carotid ultrasound: No hemodynamically significant areas of narrowing or stenosis appreciated. DISCHARGE MEDICATIONS: - Crestor 200 mg nightly - Plavix 75 mg daily - Ventolin two puffs as needed every 4 hours for shortness of breath - Xanax 0.25 mg as needed for agitation or anxiety - Norvasc 5 mg of nightly - artificial tears 0.4% solution four times as needed for dried eyes - Symbicort two puffs scheduled twice daily - Vitamin D 2000 units daily - Celexa 10 mg daily - Lasix 20 mg as needed for leg swelling - Xyzal 5 mg daily - Losartan 50 mg twice daily - omeprazole 40 mg daily - Flomax 0.4 mg daily DISCHARGE INSTRUCTIONS: This patient is discharged home with a referral to follow up with neurology and 1-2 weeks. Medication changes were discussed with him and scripts were sent to his pharmacy, [facility]. He is to follow up with primary care provider Dr. Galaviz within a week. He is aware that if symptoms recur, he is to seek further evaluation in the emergency room. My preceptor for this patient encounter was Dr. Sera Lara. The preceptor was physically present in the building during the encounter and was fully available as needed. All aspects of the patient interview, examination, medical decision making process, and medical care plan development were reviewed and approved by the preceptor. The preceptor is aware and concurs with the plan as stated in the body of this note and will attest to such by his/her cosignature.
== END 2016-06-14 10:30 | disposition home or self-care (01) | DRG 66 ==
LOC: M ED 14:16 → INTOOBSV 18:26 → M ED INP 18:26 → M PCU 23:23 → OBSVTOIN 06-13 11:52 → M ALC 06-14 01:24
PROVIDERS: ADMIT Internal Medicine; ATTEND Family Medicine
DX: I63.9 Cerebral infarction, unspecified (principal); I10 Essential (primary) hypertension; J44.9 Chronic obstructive pulmonary disease, unspecified; G47.33 Obstructive sleep apnea (adult) (pediatric); Z87.891 Personal history of nicotine dependence; K21.9 Gastro-esophageal reflux disease without esophagitis; D50.9 Iron deficiency anemia, unspecified; E78.5 Hyperlipidemia, unspecified; Z88.0 Allergy status to penicillin; Z88.2 Allergy status to sulfonamides; Z88.8 Allergy status to other drugs, medicaments and biological substances; Z88.5 Allergy status to narcotic agent; G40.909 Epilepsy, unspecified, not intractable, without status epilepticus; N40.0 Benign prostatic hyperplasia without lower urinary tract symptoms; K44.9 Diaphragmatic hernia without obstruction or gangrene; F41.9 Anxiety disorder, unspecified

== ENCOUNTER → 2016-09-29 | Outpatient (CLI) | payer OTHER ==
[~2016-09-29] MED LIST changes: +ARTI99.0 OU; +CLOP75TA2 PO; +CRES10TA32 PO
--- NOTE | 2016-09-29 09:40 | REP ---
REASON: Abdominal aortic aneurysmal screening. COMPARISON: None. Multiple ultrasonographic images of the abdominal aorta were obtained from the level of the celiac axis to the aortoiliac bifurcation in the longitudinal and transverse scan planes. The maximal AP dimension of the abdominal aorta as measured and the longitudinal scan plane is 2.5 cm. There is no evidence of aneurysmal dilatation. There is mild bilateral common iliac arterial ectasia. No images could be obtained at the level of the renal arteries due to the patient's intestinal gas pattern. IMPRESSION: No evidence of an abdominal aortic aneurysm. There is evidence of mild bilateral common iliac arterial ectasia. Signed by Jose Urias DO 09/29/2016 11:55 A
== END ==
LOC: M RAD 07:17
PROVIDERS: ATTEND Nurse Practitioner Family
DX: Z13.6 Encounter for screening for cardiovascular disorders (principal)

== ENCOUNTER → 2016-10-03 | Outpatient (REF) | payer OTHER | LOC: M SFHCLERA 18:53 | PROVIDERS: ATTEND Physician Assistant | DX: J02.9 Acute pharyngitis, unspecified (principal) ==

== ENCOUNTER → 2017-03-15 | Outpatient (REF) | payer OTHER ==
[~2017-03-15] MED LIST changes: +ASPI1TAB15 PO; -ASPI81TA7 PO; -MUCI600T34 PO; +MUCI600T37 PO
[2017-03-15 12:26] LABS: VITAMIN B12 LEVEL 207 PG/ML (247-911)
[2017-03-15 12:27] LABS: FOLATE > 24.0 NG/ML (>5.4)
[2017-03-15 12:45] LABS: FREE T4 0.83 NG/DL (0.76-1.46)
== END ==
LOC: M SFHCPLAZ 09:09
PROVIDERS: ATTEND Family Medicine
DX: G57.93 Unspecified mononeuropathy of bilateral lower limbs (principal); Z79.899 Other long term (current) drug therapy
CPT/HCPCS: 36415; 82607; 82746; 83036; 84439; 84443; G0463

== ENCOUNTER → 2017-04-09 | Outpatient (REF) | payer OTHER ==
[2017-04-09 12:09] LABS: BASO % 0.6 % (0.0-1.0); EOS # 0.1 10^3/uL (0.0-0.50); EOS % 2.3 % (0.0-3.0); IMMATURE GRANULOCYTE % 0.2 % (0-0); LYMPH # 1.5 10^3/uL (1.5-4.5); LYMPH % 30.4 % (24.0-44.0); MEAN CORPUSCULAR HEMOGLOBIN 28.8 pg (27.0-33.0); MEAN CORPUSCULAR HGB CONC 33.3 g/dl (32.0-36.5); MEAN CORPUSCULAR VOLUME 86.5 fl (80.0-96.0); MONO # 0.8 10^3/uL (0.0-0.8); MONO % 15.5 % (0.0-5.0); NEUTROPHILS # 2.5 10^3/uL (1.8-7.7); PLATELET COUNT, AUTOMATED 193 10^3/uL (150-450); WHITE BLOOD COUNT 4.8 10^3/uL (4.0-10.0)
== END ==
LOC: M SFHCPLAZ 09:27
PROVIDERS: ATTEND Family Medicine
DX: I11.9 Hypertensive heart disease without heart failure (principal); E78.2 Mixed hyperlipidemia; E53.8 Deficiency of other specified B group vitamins; G63 Polyneuropathy in diseases classified elsewhere

== ENCOUNTER 2017-06-26 07:19 | Day surgery (SDC) | payer OTHER ==
[2017-06-26] MEDS: LR 1,000 ML IV (07:45)
[2017-06-26] MEDS ORDERED: LIDOCAINE 2% INJ 100 MG/5 ML SDV (FOR ANES.) As Ordered (08:23)
[2017-06-26] MEDS ORDERED: PROPOFOL 200 MG/20 ML VIAL As Ordered ×2 (08:23→08:32)
[2017-06-26] MEDS ORDERED: ONDANSETRON 4MG/2ML VIAL (J2405) As Ordered (09:04)
== END 2017-06-26 09:46 | disposition home or self-care (01) ==
LOC: M OPP 07:19
DX: Z12.11 Encounter for screening for malignant neoplasm of colon (principal); Z86.010 Personal history of colon polyps; D12.1 Benign neoplasm of appendix; D12.5 Benign neoplasm of sigmoid colon; I10 Essential (primary) hypertension; E78.5 Hyperlipidemia, unspecified; R60.0 Localized edema; D64.9 Anemia, unspecified; M19.90 Unspecified osteoarthritis, unspecified site; Z97.8 Presence of other specified devices; Z86.73 Personal history of transient ischemic attack (TIA), and cerebral infarction without residual deficits; J45.909 Unspecified asthma, uncomplicated; J44.9 Chronic obstructive pulmonary disease, unspecified; G47.30 Sleep apnea, unspecified; R06.83 Snoring; N40.1 Benign prostatic hyperplasia with lower urinary tract symptoms; Z88.0 Allergy status to penicillin; Z88.2 Allergy status to sulfonamides; Z88.1 Allergy status to other antibiotic agents; Z88.5 Allergy status to narcotic agent; Z79.899 Other long term (current) drug therapy; Z87.891 Personal history of nicotine dependence; E66.01 Morbid (severe) obesity due to excess calories
CPT/HCPCS: 45380

== ENCOUNTER → 2017-10-15 | Outpatient (REF) | payer OTHER | LOC: M LAB REF 10-16 12:01 | DX: C44.301 Unspecified malignant neoplasm of skin of nose (principal) | CPT/HCPCS: 88305 ==

== ENCOUNTER → 2017-11-19 | Outpatient (REF) | payer OTHER | LOC: M LAB REF 11-20 12:47 | DX: L57.0 Actinic keratosis (principal) ==

== ENCOUNTER → 2018-03-20 | Outpatient (REF) | payer OTHER ==
[2018-03-20 11:42] LABS: HEMATOCRIT 40.2 % (42.0-52.0); HEMOGLOBIN 13.5 g/dl (13.5-17.5); MEAN CORPUSCULAR HEMOGLOBIN 30.1 pg (27.0-33.0); MEAN CORPUSCULAR HGB CONC 33.6 g/dl (32.0-36.5); MEAN CORPUSCULAR VOLUME 89.7 fl (80.0-96.0); PLATELET COUNT, AUTOMATED 181 10^3/uL (150-450); RED BLOOD COUNT 4.48 10^6/uL (4.30-6.10); RED CELL DISTRIBUTION WIDTH 12.8 % (11.5-14.5); WHITE BLOOD COUNT 4.2 10^3/uL (4.0-10.0)
[2018-03-20 11:56] LABS: ALBUMIN 3.9 GM/DL (3.2-5.2); ALBUMIN/GLOBULIN RATIO 1.18 (1.00-1.93); ALKALINE PHOSPHATASE 85 U/L (45-117); ALT/SGPT 42 U/L (12-78); ANION GAP 4 MEQ/L (8-16); AST/SGOT 31 U/L (7-37); BILIRUBIN,TOTAL 0.3 MG/DL (0.2-1.0); BLOOD UREA NITROGEN 22 MG/DL (7-18); CALCIUM LEVEL 8.4 MG/DL (8.8-10.2); CARBON DIOXIDE LEVEL 31 MEQ/L (21-32); CHLORIDE LEVEL 108 MEQ/L (98-107); CHOLESTEROL LEVEL 108 MG/DL (<200); CHOLESTEROL RISK RATIO 3.176 (<5); CREATININE FOR GFR 0.73 MG/DL (0.70-1.30); FREE T4 0.84 NG/DL (0.76-1.46); GLOMERULAR FILTRATION RATE > 60.0 (>49); GLUCOSE, FASTING 90 MG/DL (70-100); HDL CHOLESTEROL 34 MG/DL (>40); LDL CHOLESTEROL 58 MG/DL (<100); NON-HDL-C 74 MG/DL; POTASSIUM SERUM 4.6 MEQ/L (3.5-5.1); PSA SCREENING 0.8 NG/ML (< 4.0); SODIUM LEVEL 143 MEQ/L (136-145); TOTAL PROTEIN 7.2 GM/DL (6.4-8.2); TRIGLYCERIDES LEVEL 81 MG/DL (<150)
== END ==
LOC: M SFHCPLAZ 07:50
DX: G47.33 Obstructive sleep apnea (adult) (pediatric) (principal); J44.9 Chronic obstructive pulmonary disease, unspecified; E78.2 Mixed hyperlipidemia; F41.9 Anxiety disorder, unspecified; Z12.5 Encounter for screening for malignant neoplasm of prostate
CPT/HCPCS: 84443

== ENCOUNTER 2018-06-07 01:47 | Emergency (ER) | payer MEDICARE, OTHER ==
[~2018-06-07] VITALS: Ht 170.2 cm; Wt 102.3 kg
[~2018-06-07 01:47] MED LIST changes: -AMLO5TAB2 PO; +AMLO5TAB6 PO; +FLOM0.4C39 PO; -FLOM5CAP PO; +FLUTISP; -LOSA50TA20 PO; +LOSA50TA88 PO; +MONT10TA2
--- NOTE | 2018-06-07 03:00 | REPVR ---
EXAM: CT Head Without Contrast EXAM DATE/TIME: 06/07/2018 1:52 AM CLINICAL HISTORY: 68 years old, male; Injury or trauma; Fall TECHNIQUE: Axial computed tomography images of the head/brain without contrast. All CT scans at this facility use at least one of these dose optimization techniques: automated exposure control; mA and/or kV adjustment per patient size (includes targeted exams where dose is matched to clinical indication); or iterative reconstruction. COMPARISON: CT Head without contrast 06/12/2016 3:04 PM FINDINGS: Brain: Normal. No hemorrhage. No significant white matter disease. No edema. Ventricles: Normal. No ventriculomegaly. Bones/joints: Unremarkable. No acute fracture. Sinuses: Visualized sinuses are unremarkable. No acute sinusitis. Mastoid air cells: Visualized mastoid air cells are unremarkable. No mastoid effusion. Soft tissues: Parietal-occipital scalp soft tissue swelling centered to the left of midline. IMPRESSION: 1. Parieto-occipital scalp soft tissue swelling centered to the left. 2. Otherwise negative noncontrast head CT with no change intracranially since 06/12/2016. Electronically signed by: Albino Almendarez On 06/07/2018 02:59:44 AM
--- NOTE | 2018-06-07 03:05 | REPVR ---
EXAM: CT Cervical Spine Without Contrast EXAM DATE/TIME: 06/07/2018 1:52 AM CLINICAL HISTORY: 68 years old, male; Injury or trauma; Fall; Initial encounter; Concussion /head injury TECHNIQUE: Axial computed tomography images of the cervical spine without intravenous contrast. All CT scans at this facility use at least one of these dose optimization techniques: automated exposure control; mA and/or kV adjustment per patient size (includes targeted exams where dose is matched to clinical indication); or iterative reconstruction. Coronal and sagittal reformatted images were created and reviewed. COMPARISON: No relevant prior studies available. FINDINGS: Vertebrae: No acute fracture. Normal alignment. Soft tissues: Unremarkable. Lungs: Lung apices are normal. DISCS/SPINAL CANAL/NEURAL FORAMINA: C2-C3: No significant disc protrusion and minimal degenerative changes of apophyseal joints with no spinal or foraminal stenosis. C3-C4: Moderate interspace narrowing with slight retrolisthesis and minimal posterior osteophytes. There are bilateral degenerative changes. Borderline spinal stenosis and mild right and borderline left neural foraminal stenosis. C4-C5: Mild interspace narrowing with slight anterior listhesis and bilateral degenerative changes with no significant spinal or foraminal stenosis. C5-C6: Moderate interspace narrowing with minimal osteophytes and degenerative changes. No spinal stenosis. There is mild left neural foraminal stenosis. C6-C7: Moderate interspace narrowing with posterior osteophytes and bilateral degenerative changes, primarily uncovertebral joints with no significant spinal or foraminal stenosis. C7-T1: Mild interspace narrowing with minimal degenerative changes of apophyseal joints and no spinal or foraminal stenosis. IMPRESSION: 1. Multilevel degenerative changes with borderline spinal stenosis at C3-C4 and scattered neural foraminal stenosis, greatest on the right at C3-C4. 2. No acute fracture or subluxation. Electronically signed by: Albino Almendarez On 06/07/2018 03:05:15 AM
[2018-06-07] MEDS ORDERED: ONDANSETRON 4 MG ORAL DISINTEGRATING TAB (Q0162 PER 1MG) PO ONE (03:30)
[2018-06-07] MEDS ORDERED: ONDA4TAB6 PO (03:31)
[2018-06-07 03:44] VITALS: BP 150/79
--- NOTE | 2018-06-07 13:16 | ECGEPIP ---
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
[2018-06-12] MEDS ORDERED: VITA500064 PO (13:33)
[2018-06-12] MEDS ORDERED: VENTAER INH (13:33)
[2018-06-12] MEDS ORDERED: MECL1CHW2 PO (13:37)
== END 2018-06-07 03:47 | disposition home or self-care (01) ==
LOC: M ED 01:47
DX: S06.0X0A Concussion without loss of consciousness, initial encounter (principal); W00.9XXA Unspecified fall due to ice and snow, initial encounter; Y92.099 Unspecified place in other non-institutional residence as the place of occurrence of the external cause; Y93.9 Activity, unspecified; Y99.9 Unspecified external cause status; Z86.73 Personal history of transient ischemic attack (TIA), and cerebral infarction without residual deficits; M48.02 Spinal stenosis, cervical region; Z79.899 Other long term (current) drug therapy; Z88.0 Allergy status to penicillin; Z88.5 Allergy status to narcotic agent; Z88.2 Allergy status to sulfonamides; Z88.1 Allergy status to other antibiotic agents
CPT/HCPCS: 70450; 72125; 93005; 99283; Q0162

== ENCOUNTER 2018-06-19 06:27 | Day surgery (SDC) | payer MEDICARE ==
[~2018-06-19] VITALS: Ht 170.2 cm; Wt 103.0 kg
[~2018-06-19 06:27] MED LIST changes: +MECL1CHW2 PO; +ONDA4TAB6 PO; +VITA500064 PO
[2018-06-19] MEDS ORDERED: LIDOCAINE 1% SDV 5 ML VIAL As Ordered ONE (06:42)
[2018-06-19] MEDS ORDERED: BALANCED SALT IRRIGATION SOLUTION 500ML BAG (FOR OR EYE MACHINE) As Ordered ONE (06:42)
[2018-06-19] MEDS ORDERED: POVIDONE-IODINE 5% OPHTH PREP SOL 30ML As Ordered ONE (06:42)
[2018-06-19] MEDS ORDERED: HEALON DUET PRO(HEALON 10MG/ML 0.55ML & HEALON ENDOCOAT 30MG/ML 0.85ML) As Ordered ONE (06:42)
[2018-06-19] MEDS ORDERED: LIDOCAINE 3.5 % 1ML OPHTH TOPICAL GEL OU ONE (07:00)
[2018-06-19] MEDS ORDERED: TROPICAMIDE 1% OPHTH SOLN 2ML OD ONE (07:00)
[2018-06-19] MEDS ORDERED: PHENYLEPHRINE HCL 10 % OPHTH. SOL 5ML OD PRN (07:00)
[2018-06-19] MEDS ORDERED: OFLOXACIN 0.3 % (OCUFLOX) OPTH SOL 5ML OD ONE (07:00)
[2018-06-19] MEDS ORDERED: CYCLOPENTOLATE 2% OPHTH SOLN 2ML BTL OD ONE (07:00)
[2018-06-19] MEDS ORDERED: PHENYLEPHRINE 2.5% OPHTH SOL 2ML OD ONE (07:00)
[2018-06-19] MEDS ORDERED: fentaNYL 100 MCG/2 ML INJECTION (J3010) As Ordered ONE (08:46)
[2018-06-19] MEDS ORDERED: MIDAZOLAM INJ 2 MG/2 ML VIAL (J2250) As Ordered ONE (08:46)
[2018-06-19 09:24] VITALS: BP 140/80
--- NOTE | 2018-06-20 07:55 | RO ---
DATE OF PROCEDURE: 06/19/2018 PREPROCEDURE DIAGNOSIS: Age-related nuclear cataract, right eye. POSTPROCEDURE DIAGNOSIS: Age-related nuclear cataract, right eye. PROCEDURE: Phacoemulsification and posterior chamber intraocular lens implantation, right eye. The lens used was AU00T0, 21.0 diopter. SURGEON: Maryjane Walker MD [place]ION ANALYST: ANESTHESIA: Topical with sedation. DESCRIPTION OF PROCEDURE: The patient was prepped and draped in the usual fashion. A lid speculum was placed between the lids. The eye was fixated. A stab incision was made to the anterior chamber, and 1% non-preserved lidocaine was instilled. Then, viscoelastic was instilled. The eye was re-fixated. A 2.75 mm sapphire keratome was used to make a clear corneal temporal limbal incision. Capsulorrhexis was begun with a 30-gauge bent needle and then carried out in a circular fashion with capsulorrhexis forceps. The lens was hydrodissected, and then the phacoemulsification unit was used to make a groove in the nucleus in two meridians. The nucleus was then cracked into four quadrants. Each quadrant was removed with the phacoemulsification unit. Any remaining cortex was removed with the irrigation and aspiration (I and A) unit. Capsular bag was refilled with viscoelastic. A posterior chamber intraocular lens was placed in the capsular bag without difficulty. Any remaining viscoelastic was removed with the I and A unit. The wound was hydrated, and Miochol and cefuroxime were instilled into the anterior chamber. The patient tolerated the procedure well and went to the recovery room in stable condition.
== END 2018-06-19 09:30 | disposition home or self-care (01) ==
LOC: M SDC 06:27
PROVIDERS: ATTEND Ophthalmology
DX: H25.11 Age-related nuclear cataract, right eye (principal); I10 Essential (primary) hypertension; J44.9 Chronic obstructive pulmonary disease, unspecified; K21.9 Gastro-esophageal reflux disease without esophagitis; J45.909 Unspecified asthma, uncomplicated; R60.0 Localized edema; H81.49 Vertigo of central origin, unspecified ear; M12.9 Arthropathy, unspecified; F41.9 Anxiety disorder, unspecified; R06.83 Snoring; G47.33 Obstructive sleep apnea (adult) (pediatric); N40.0 Benign prostatic hyperplasia without lower urinary tract symptoms; E66.9 Obesity, unspecified; Z68.36 Body mass index [BMI] 36.0-36.9, adult; Z88.0 Allergy status to penicillin; Z88.1 Allergy status to other antibiotic agents; Z88.2 Allergy status to sulfonamides; Z88.5 Allergy status to narcotic agent; Z79.899 Other long term (current) drug therapy; Z79.01 Long term (current) use of anticoagulants; Z87.820 Personal history of traumatic brain injury; Z85.828 Personal history of other malignant neoplasm of skin
CPT/HCPCS: 66984; 92015; J2250; J3010; V2632

== ENCOUNTER 2018-06-22 09:24 | Emergency (ER) | payer MEDICARE ==
[~2018-06-22] VITALS: Ht 170.2 cm; Wt 104.5 kg
[2018-06-22] MEDS ORDERED: TOBR0.3S37 (09:56)
[2018-06-22] MEDS ORDERED: ACUV0.45 (09:56)
[2018-06-22] MEDS ORDERED: NS 1,000 ML IV ONE ×2 (10:30)
[2018-06-22 11:11] LABS: BASO # 0.1 10^3/uL (0.0-0.2); BASO % 0.9 % (0.0-1.0); EOS # 0.2 10^3/uL (0.0-0.50); EOS % 2.7 % (0.0-3.0); HEMATOCRIT 39.2 % (42.0-52.0); HEMOGLOBIN 13.3 g/dl (13.5-17.5); LYMPH # 1.2 10^3/uL (1.5-4.5); LYMPH % 20.7 % (24.0-44.0); MEAN CORPUSCULAR HEMOGLOBIN 29.9 pg (27.0-33.0); MEAN CORPUSCULAR HGB CONC 33.9 g/dl (32.0-36.5); MEAN CORPUSCULAR VOLUME 88.1 fl (80.0-96.0); MONO # 0.6 10^3/uL (0.0-0.8); MONO % 11.2 % (0.0-5.0); NEUTROPHILS # 3.6 10^3/uL (1.8-7.7); NEUTROPHILS % 64.3 % (36.0-66.0); PLATELET COUNT, AUTOMATED 192 10^3/uL (150-450); RED BLOOD COUNT 4.45 10^6/uL (4.30-6.10); WHITE BLOOD COUNT 5.6 10^3/uL (4.0-10.0)
[2018-06-22 11:18] LABS: INR 1.04; PROTHROMBIN TIME 13.7 SECONDS (12.1-14.4)
[2018-06-22 11:19] LABS: PARTIAL THROMBOPLASTIN TIME 28.6 SECONDS (25.4-37.6)
[2018-06-22 11:41] LABS: ALBUMIN 4.1 GM/DL (3.2-5.2); ALT/SGPT 33 U/L (12-78); AMYLASE 46 U/L (25-115); BILIRUBIN,DIRECT 0.1 MG/DL (0.0-0.2); BILIRUBIN,TOTAL 0.4 MG/DL (0.2-1.0); BLOOD UREA NITROGEN 18 MG/DL (7-18); CARBON DIOXIDE LEVEL 29 MEQ/L (21-32); CHLORIDE LEVEL 105 MEQ/L (98-107); CREATININE FOR GFR 0.78 MG/DL (0.70-1.30); GLOMERULAR FILTRATION RATE > 60.0 (>49); GLUCOSE, FASTING 83 MG/DL (70-100); LIPASE 90 U/L (73-393); POTASSIUM SERUM 4.4 MEQ/L (3.5-5.1); SODIUM LEVEL 143 MEQ/L (136-145); TOTAL PROTEIN 7.4 GM/DL (6.4-8.2)
[2018-06-22] MEDS ORDERED: ISOVUE-370 76% 100ML VIAL (Q9967) As Ordered ONE (12:03)
--- NOTE | 2018-06-22 12:55 | REP ---
CT of the abdomen and pelvis with IV and oral contrast: There are no comparisons. The patient complains of lower abdominal tenderness. The visualized lung lee are unremarkable. There is a moderate hiatal hernia. The hepatic parenchyma, gallbladder, pancreas, spleen and adrenals are unremarkable. There is a left renal 4.7 cm Bosniak type 1 simple cyst. The kidneys are otherwise unremarkable. The abdominal aorta is unremarkable. There is wall thickening of the descending colon and sigmoid colon, nonspecific, but possibly colitis in the appropriate clinical setting. There is no diverticulosis or diverticulitis. There is no bowel distension or obstruction. There is mild induration of the mesentery centrally compatible with panniculitis in the appropriate clinical setting. There is no abdominal or pelvic ascites or adenopathy. Pelvis: The appendix is not visualized, however, there is no pericecal inflammation or abscess. The terminal ileum is unremarkable. The bladder is unremarkable. The pelvic bowel loops have findings compatible with colitis in the appropriate clinical setting as discussed. Impression: There are findings compatible with colitis of the descending colon and sigmoid colon in the appropriate clinical setting. There are findings compatible with panniculitis in the central mesentery in the appropriate clinical setting. Left renal cyst. Hiatal hernia. Electronically Signed by Malik Nye MD 06/22/2018 12:46 P
[2018-06-22 13:16] VITALS: BP 143/79
--- NOTE | 2018-06-25 13:15 | ED PDOC ---
Post-Departure Follow-Up dr reese faxed formal report of ct abd/p for fu Bisi Abdi MD Jun 25, 2018 13:15
== END 2018-06-22 13:41 | disposition home or self-care (01) ==
LOC: M ED 09:24
DX: M79.3 Panniculitis, unspecified (principal); N28.1 Cyst of kidney, acquired; K44.9 Diaphragmatic hernia without obstruction or gangrene; R93.3 Abnormal findings on diagnostic imaging of other parts of digestive tract; I10 Essential (primary) hypertension; R56.9 Unspecified convulsions; Z86.73 Personal history of transient ischemic attack (TIA), and cerebral infarction without residual deficits; J45.909 Unspecified asthma, uncomplicated; G47.30 Sleep apnea, unspecified; K21.9 Gastro-esophageal reflux disease without esophagitis; N40.0 Benign prostatic hyperplasia without lower urinary tract symptoms; F41.9 Anxiety disorder, unspecified; Z87.891 Personal history of nicotine dependence; Z79.899 Other long term (current) drug therapy; Z88.5 Allergy status to narcotic agent; Z88.0 Allergy status to penicillin; Z88.2 Allergy status to sulfonamides
CPT/HCPCS: 74177; 80048; 80076; 82150; 83605; 83690; 85025; 85610; 85730; 96360; 96361; 99284; Q9967

== ENCOUNTER 2018-07-10 07:01 | Day surgery (SDC) | payer MEDICARE ==
[~2018-07-10] VITALS: Ht 170.2 cm; Wt 104.8 kg
[~2018-07-10 07:01] MED LIST changes: +ACUV0.45; +BALANCED SALT IRRIGATION SOLUTION 500ML BAG (FOR OR EYE MACHINE) As Ordered ONE; +CYCLOPENTOLATE 2% OPHTH SOLN 2ML BTL OS ONE; +HEALON DUET PRO(HEALON 10MG/ML 0.55ML & HEALON ENDOCOAT 30MG/ML 0.85ML) As Ordered ONE; +LIDOCAINE 1% SDV 5 ML VIAL As Ordered ONE; +LIDOCAINE 3.5 % 1ML OPHTH TOPICAL GEL OU ONE; +OFLOXACIN 0.3 % (OCUFLOX) OPTH SOL 5ML OS ONE; +PHENYLEPHRINE 2.5% OPHTH SOL 2ML OS ONE; +PHENYLEPHRINE HCL 10 % OPHTH. SOL 5ML OS PRN; +POVIDONE-IODINE 5% OPHTH PREP SOL 30ML As Ordered ONE; +TOBR0.3S37; +TROPICAMIDE 1% OPHTH SOLN 2ML OS ONE
[2018-07-10] MEDS ORDERED: MIDAZOLAM INJ 2 MG/2 ML VIAL (J2250) As Ordered ONE (07:55)
[2018-07-10] MEDS ORDERED: fentaNYL 100 MCG/2 ML INJECTION (J3010) As Ordered ONE (07:55)
[2018-07-10] MEDS ORDERED: AcetaZOLAMIDE 500 MG ER CAP As Ordered ONE (09:51)
[2018-07-10 10:00] VITALS: BP 133/80
--- NOTE | 2018-07-10 18:34 | RO ---
DATE OF PROCEDURE: 07/10/2018 PREPROCEDURE DIAGNOSIS: Age-related nuclear cataract and some miotic pupil left eye. POSTPROCEDURE DIAGNOSIS: Age-related nuclear cataract and some miotic pupil left eye. PROCEDURE: Phacoemulsification and posterior chamber intraocular lens implantation and use of pupil expansion device left eye, plus Optiwave refractive analysis. The lens used was AU00T0, 25.0 diopters. SURGEON: Maryjane Walker MD LICENSED MENTAL HEALTH COUNSELOR: ANESTHESIA: Topical with sedation. DESCRIPTION OF PROCEDURE: The patient was prepped and draped in the usual fashion. A lid speculum was placed between the lids. The eye was fixated. A stab incision was made to the anterior chamber, and 1% nonpreserved lidocaine was instilled. Then, viscoelastic was instilled. The eye was re-fixated. A 2.75 mm keratome was used to make a clear corneal temporal limbal incision. Malyugin ring was placed in the tester operator and injected into the eye. First the distal scroll then the superior and inferior scrolls were engaged. The proximal scroll was placed with manipulation hook. The capsulorrhexis was begun with the cystotome and carried out in a circular fashion with capsulorrhexis forceps. The lens was hydrodissected and then the phacoemulsification was used to divide the nucleus in two meridians. The nucleus was cracked into four quadrants. Each quadrant removed with the phacoemulsification unit. Any remaining cortex was removed with the I and A. The capsular bag was refilled with viscoelastic. The pressure in the eye was checked and the Optiwave Refractive Analysis (ORA) was used to make some measurements. The lens selected from the ORA was 25.0 diopters. The implant was then injected into the posterior chamber and was in great position. The Malyugin ring was disinserted from the iris. The four scrolls then removed from the eye with the manipulation hook. Any remaining viscoelastic then removed with the I and A. The wound was hydrated and balanced salt was instilled. The patient tolerated the procedure well and went to recovery room in stable condition.
== END 2018-07-10 10:00 | disposition home or self-care (01) ==
LOC: M SDC 07:01
PROVIDERS: ATTEND Ophthalmology
DX: H25.12 Age-related nuclear cataract, left eye (principal); H57.03 Miosis; I10 Essential (primary) hypertension; G47.30 Sleep apnea, unspecified; K21.9 Gastro-esophageal reflux disease without esophagitis; J44.9 Chronic obstructive pulmonary disease, unspecified; Z79.899 Other long term (current) drug therapy; Z88.0 Allergy status to penicillin; Z88.2 Allergy status to sulfonamides
CPT/HCPCS: 66982; 92015; J2250; J3010; V2632

== ENCOUNTER → 2018-10-18 | Outpatient (CLI) | payer MEDICARE ==
[~2018-10-18] MED LIST changes: -/IPRAINH INFIL; -/IPRAINH INH; -/MOXI40TA OR; -/TAMS4CA OR; +ATRO0.063 INFIL; +ATRO0.063 INH; +AVEL1TAB2 OR; -BALANCED SALT IRRIGATION SOLUTION 500ML BAG (FOR OR EYE MACHINE) As Ordered ONE; +CRES10TA PO; -CRES10TA32 PO; -CYCLOPENTOLATE 2% OPHTH SOLN 2ML BTL OS ONE; +FLOM0.4C39 OR; -HEALON DUET PRO(HEALON 10MG/ML 0.55ML & HEALON ENDOCOAT 30MG/ML 0.85ML) As Ordered ONE; -LIDOCAINE 1% SDV 5 ML VIAL As Ordered ONE; -LIDOCAINE 3.5 % 1ML OPHTH TOPICAL GEL OU ONE; +MECL1CHW PO; -MECL1CHW2 PO; -OFLOXACIN 0.3 % (OCUFLOX) OPTH SOL 5ML OS ONE; -PHENYLEPHRINE 2.5% OPHTH SOL 2ML OS ONE; -PHENYLEPHRINE HCL 10 % OPHTH. SOL 5ML OS PRN; -POVIDONE-IODINE 5% OPHTH PREP SOL 30ML As Ordered ONE; -TROPICAMIDE 1% OPHTH SOLN 2ML OS ONE
[2018-10-18 13:41] LABS: FOLATE 15.6 NG/ML (>5.4); VITAMIN B12 LEVEL > 2000 PG/ML (247-911)
[2018-10-23 16:11] LABS: CERULOPLASMIN 25.2 mg/dL (16.0-31.0); VITAMIN B1 LEVEL WHOLE BLOOD 163.9 nmol/L (66.5-200.0); VITAMIN B6,PYRIDOXAL PHOSPHATE 3.6 ug/L (5.3-46.7); VITAMIN E(ALPHA TOCOPHEROL) 7.1 mg/L (9.0-29.0); VITAMIN E(GAMMA TOCOPHEROL) 1.1 mg/L (0.5-4.9)
== END ==
LOC: M LRY 09:43
PROVIDERS: ATTEND Psychiatry & Neurology Neurology
DX: R42 Dizziness and giddiness (principal); R26.9 Unspecified abnormalities of gait and mobility; E53.8 Deficiency of other specified B group vitamins; E83.01 Wilson's disease; E51.9 Thiamine deficiency, unspecified

== ENCOUNTER → 2018-11-30 | Outpatient (CLI) | payer MEDICARE ==
[~2018-11-30] MED LIST changes: -ARTI99.0 OU; +ARTIDRO2 OU; -OMEP20CA3 PO; +OMEP20CA4 PO
--- NOTE | 2018-11-30 14:33 | REP ---
Clinical: Laceration. Technique: AP, lateral, bilateral oblique views of the left first digit. Findings: Soft tissue laceration underlying the distal phalanx is suggested. No foreign body. Osseous structures demonstrate arthritic changes. No acute fracture or dislocation. Impression: Laceration. No osseous involvement. Electronically Signed by Luis Enrique Barnes MD 11/30/2018 02:25 P
== END ==
LOC: M LRY 13:44
PROVIDERS: ATTEND Physician Assistant
DX: S61.012A Laceration without foreign body of left thumb without damage to nail, initial encounter (principal); W27.0XXA Contact with workbench tool, initial encounter; Y92.9 Unspecified place or not applicable
CPT/HCPCS: 12002; 73140; G0463

== ENCOUNTER → 2019-03-18 | Outpatient (REF) | payer MEDICARE ==
[~2019-03-18] MED LIST changes: +B COTAB3 PO; +VITA-157 PO
[2019-03-18 12:05] LABS: HEMATOCRIT 40.4 % (42.0-52.0); HEMOGLOBIN 13.3 g/dl (13.5-17.5); MEAN CORPUSCULAR HEMOGLOBIN 28.8 pg (27.0-33.0); MEAN CORPUSCULAR HGB CONC 32.9 g/dl (32.0-36.5); MEAN CORPUSCULAR VOLUME 87.4 fl (80.0-96.0); PLATELET COUNT, AUTOMATED 197 10^3/uL (150-450); RED BLOOD COUNT 4.62 10^6/uL (4.30-6.10); WHITE BLOOD COUNT 4.4 10^3/uL (4.0-10.0)
[2019-03-18 12:34] LABS: ALBUMIN 3.9 GM/DL (3.2-5.2); ALT/SGPT 35 U/L (12-78); BILIRUBIN,TOTAL 0.5 MG/DL (0.2-1.0); BLOOD UREA NITROGEN 17 MG/DL (7-18); CALCIUM LEVEL 8.9 MG/DL (8.8-10.2); CARBON DIOXIDE LEVEL 29 MEQ/L (21-32); CHLORIDE LEVEL 106 MEQ/L (98-107); CHOLESTEROL LEVEL 109 MG/DL (<200); CHOLESTEROL RISK RATIO 2.945 (<5); CREATININE FOR GFR 0.77 MG/DL (0.70-1.30); GLOMERULAR FILTRATION RATE > 60.0 (>49); GLUCOSE, FASTING 95 MG/DL (70-100); HDL CHOLESTEROL 37 MG/DL (>40); LDL CHOLESTEROL 52 MG/DL (<100); NON-HDL-C 72 MG/DL; SODIUM LEVEL 139 MEQ/L (136-145); TOTAL PROTEIN 7.3 GM/DL (6.4-8.2); TRIGLYCERIDES LEVEL 102 MG/DL (<150)
== END ==
LOC: M LABDRAW1 11:36
PROVIDERS: ATTEND Family Medicine
DX: Z12.5 Encounter for screening for malignant neoplasm of prostate (principal); I11.9 Hypertensive heart disease without heart failure; J44.9 Chronic obstructive pulmonary disease, unspecified; E78.2 Mixed hyperlipidemia
CPT/HCPCS: 36415; 80053; 80061; 85027; G0103

== ENCOUNTER → 2019-04-03 | Outpatient (CLI) | payer MEDICARE ==
[~2019-04-03] MED LIST changes: +OMEP-172 PO; -OMEP20CA4 PO
[2019-04-03 12:24] LABS: ALBUMIN 4.1 GM/DL (3.2-5.2); BLOOD UREA NITROGEN 23 MG/DL (7-18); CALCIUM LEVEL 9.4 MG/DL (8.8-10.2); CARBON DIOXIDE LEVEL 30 MEQ/L (21-32); CHLORIDE LEVEL 105 MEQ/L (98-107); CREATININE FOR GFR 1.08 MG/DL (0.70-1.30); GLOMERULAR FILTRATION RATE > 60.0 (>49); GLUCOSE, FASTING 94 MG/DL (70-100); MAGNESIUM LEVEL 2.2 MG/DL (1.8-2.4); NT-PRO BNP 19 PG/ML (<125); PHOSPHORUS LEVEL 2.4 MG/DL (2.5-4.9); POTASSIUM SERUM 4.6 MEQ/L (3.5-5.1); SODIUM LEVEL 140 MEQ/L (136-145)
== END ==
LOC: M LRY 08:48
PROVIDERS: ATTEND Internal Medicine Cardiovascular Disease
DX: I50.32 Chronic diastolic (congestive) heart failure (principal)

== ENCOUNTER 2019-04-15 10:41 | Emergency (ER) | payer MEDICARE ==
[~2019-04-15] VITALS: Ht 170.2 cm; Wt 106.8 kg
[2019-04-15 11:07] LABS: BASO # 0.1 10^3/uL (0.0-0.2); EOS # 0.1 10^3/uL (0.0-0.5); EOS % 2.5 % (0.0-3.0); HEMATOCRIT 41.9 % (42.0-52.0); HEMOGLOBIN 13.7 g/dl (13.5-17.5); LYMPH # 1.2 10^3/uL (1.5-5.0); MEAN CORPUSCULAR HEMOGLOBIN 28.4 pg (27.0-33.0); MEAN CORPUSCULAR HGB CONC 32.7 g/dl (32.0-36.5); MEAN CORPUSCULAR VOLUME 86.9 fl (80.0-96.0); MONO # 0.6 10^3/uL (0.0-0.8); MONO % 12.1 % (0.0-5.0); NEUTROPHILS # 2.9 10^3/uL (1.5-8.5); NEUTROPHILS % 60.2 % (36.0-66.0); PLATELET COUNT, AUTOMATED 176 10^3/uL (150-450); RED BLOOD COUNT 4.82 10^6/uL (4.30-6.10); WHITE BLOOD COUNT 4.9 10^3/uL (4.0-10.0)
--- NOTE | 2019-04-15 11:21 | REP ---
CHEST, PORTABLE: COMPARISON: 03/13/2019 There is no evidence of acute infiltrate. No pleural effusion is seen. The heart is normal in size. The mediastinal silhouette is unremarkable. The visualized osseous structures are intact. IMPRESSION: No acute pulmonary disease. Electronically Signed by Malik Walters MD 04/15/2019 04:05 P
[2019-04-15 11:41] LABS: BLOOD UREA NITROGEN 25 MG/DL (7-18); CALCIUM LEVEL 9.4 MG/DL (8.8-10.2); CARBON DIOXIDE LEVEL 27 MEQ/L (21-32); CHLORIDE LEVEL 104 MEQ/L (98-107); CK-MB VALUE MASS 1.1 NG/ML (<3.6); CPK CREATINE PHOSPHOKINASE 94 U/L (39-308); GLOMERULAR FILTRATION RATE > 60.0 (>49); GLUCOSE, FASTING 95 MG/DL (70-100); MB/CK RELATIVE INDEX 1.17 (< OR =4); POTASSIUM SERUM 4.5 MEQ/L (3.5-5.1); SODIUM LEVEL 140 MEQ/L (136-145); TROPONIN I < 0.02 NG/ML (< 0.10)
[2019-04-15 11:52] LABS: ERYTHROCYTE SEDIMENTATION RATE 15 mm/hr (0-20)
[2019-04-15 13:23] LABS: ALBUMIN 4.3 GM/DL (3.2-5.2); ALT/SGPT 37 U/L (12-78); BILIRUBIN,DIRECT 0.1 MG/DL (0.0-0.2); BILIRUBIN,TOTAL 0.4 MG/DL (0.2-1.0); LIPASE 134 U/L (73-393); TOTAL PROTEIN 7.9 GM/DL (6.4-8.2)
[2019-04-15] MEDS ORDERED: ISOVUE-370 76% 100ML VIAL (Q9967) As Ordered ONE (13:53)
--- NOTE | 2019-04-15 14:42 | REP ---
CT ANGIOGRAM CHEST: TECHNIQUE: Axial contrast enhanced images from the thoracic inlet to the upper abdomen using 100 mL Isovue 370 intravenous contrast material with multiplanar reformations. There is no CT evidence of pulmonary embolism. There is no thoracic aortic aneurysm or dissection. There is mild ectasia of the ascending thoracic aorta with a maximum AP diameter of 4.2 cm. There is no mediastinal, hilar, or chest wall lymphadenopathy. There is no pleural or pericardial effusion. Heart is upper limits of normal in size. There is a large hiatal hernia. No infiltrate is seen in either lung. There are mild degenerative changes of the spine. Incidental note is made of a cyst of the upper left kidney measuring approximately 5.0 cm in diameter. IMPRESSION: No CT evidence of pulmonary embolism or aortic dissection. Large hiatal hernia. Electronically Signed by Malik Walters MD 04/16/2019 07:07 P
[2019-04-15] MEDS ORDERED: SUCR1SS PO (15:37)
[2019-04-15 16:05] VITALS: BP 110/70
--- NOTE | 2019-04-16 08:01 | ECGEPIP ---
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
== END 2019-04-15 16:14 | disposition home or self-care (01) ==
LOC: M ED 10:41
DX: K44.9 Diaphragmatic hernia without obstruction or gangrene (principal); R07.89 Other chest pain; I10 Essential (primary) hypertension; K21.9 Gastro-esophageal reflux disease without esophagitis; J44.9 Chronic obstructive pulmonary disease, unspecified; Z86.73 Personal history of transient ischemic attack (TIA), and cerebral infarction without residual deficits; Z87.891 Personal history of nicotine dependence; Z79.899 Other long term (current) drug therapy; Z88.0 Allergy status to penicillin; Z88.2 Allergy status to sulfonamides; Z88.5 Allergy status to narcotic agent; Z88.1 Allergy status to other antibiotic agents
CPT/HCPCS: 71045; 71275; 80048; 80076; 82550; 82553; 83690; 84484; 85025; 85652; 93005; 93041; 94760; 99285; Q9967

== ENCOUNTER → 2020-03-29 | Outpatient (CLI) | payer MEDICARE ==
[~2020-03-29] MED LIST changes: +AMLO1TAB24 PO; -AMLO5TAB6 PO; -ARTIDRO2 OU; +ASPI-546 PO; -ASPI1TAB15 PO; -MONT10TA2; +MONT5TAB2; -OMEP-172 PO; +OMEP1CAP73 PO; +POLYOPD OU; +SUCR1SS PO
[2020-03-29 11:04] LABS: HEMATOCRIT 40.3 % (42.0-52.0); HEMATOCRIT 40.8 % (42.0-52.0); HEMOGLOBIN 12.7 g/dl (13.5-17.5); HEMOGLOBIN 13.1 g/dl (13.5-17.5); MEAN CORPUSCULAR HEMOGLOBIN 29.1 pg (27.0-33.0); MEAN CORPUSCULAR HEMOGLOBIN 29.8 pg (27.0-33.0); MEAN CORPUSCULAR HGB CONC 31.5 g/dl (32.0-36.5); MEAN CORPUSCULAR HGB CONC 32.1 g/dl (32.0-36.5); MEAN CORPUSCULAR VOLUME 92.4 fl (80.0-96.0); MEAN CORPUSCULAR VOLUME 92.7 fl (80.0-96.0); PLATELET COUNT, AUTOMATED 206 10^3/uL (150-450); PLATELET COUNT, AUTOMATED 215 10^3/uL (150-450); RED BLOOD COUNT 4.36 10^6/uL (4.30-6.10); WHITE BLOOD COUNT 4.3 10^3/uL (4.0-10.0); WHITE BLOOD COUNT 4.5 10^3/uL (4.0-10.0)
[2020-03-29 11:33] LABS: BLOOD UREA NITROGEN 18 MG/DL (7-18); CALCIUM LEVEL 8.8 MG/DL (8.8-10.2); CARBON DIOXIDE LEVEL 29 MEQ/L (21-32); CHLORIDE LEVEL 107 MEQ/L (98-107); CHOLESTEROL LEVEL 134 MG/DL (<200); CHOLESTEROL RISK RATIO 3.621 (<5); CREATININE FOR GFR 1.02 MG/DL (0.70-1.30); GLOMERULAR FILTRATION RATE > 60.0 (>42); GLUCOSE, FASTING 100 MG/DL (70-100); HDL CHOLESTEROL 37 MG/DL (>40); LDL CHOLESTEROL 69 MG/DL (<100); NON-HDL-C 97 MG/DL; POTASSIUM SERUM 4.6 MEQ/L (3.5-5.1); SODIUM LEVEL 141 MEQ/L (136-145); TRIGLYCERIDES LEVEL 140 MG/DL (<150)
[2020-03-29 11:39] LABS: ALBUMIN 3.9 GM/DL (3.2-5.2); ALT/SGPT 45 U/L (12-78); BILIRUBIN,TOTAL 0.5 MG/DL (0.2-1.0); BLOOD UREA NITROGEN 16 MG/DL (7-18); CARBON DIOXIDE LEVEL 30 MEQ/L (21-32); CHLORIDE LEVEL 108 MEQ/L (98-107); CREATININE FOR GFR 0.97 MG/DL (0.70-1.30); GLOMERULAR FILTRATION RATE > 60.0 (>42); GLUCOSE, FASTING 99 MG/DL (70-100); POTASSIUM SERUM 4.3 MEQ/L (3.5-5.1); SODIUM LEVEL 141 MEQ/L (136-145); TOTAL PROTEIN 7.6 GM/DL (6.4-8.2)
== END ==
LOC: M PLALAB 08:17
PROVIDERS: ATTEND Physician Assistant
DX: G47.33 Obstructive sleep apnea (adult) (pediatric) (principal); G63 Polyneuropathy in diseases classified elsewhere; Z12.5 Encounter for screening for malignant neoplasm of prostate; I11.9 Hypertensive heart disease without heart failure; E78.2 Mixed hyperlipidemia; I50.32 Chronic diastolic (congestive) heart failure
CPT/HCPCS: 36415; 80048; 80053; 80061; 85027; G0103

== ENCOUNTER → 2020-09-22 | Outpatient (REF) | payer MEDICARE ==
[~2020-09-22] MED LIST changes: +MONT10TA10; -MONT5TAB2; -VITA-157 PO; +VITAE40CA PO
== END ==
LOC: M LAB REF 17:28
PROVIDERS: ATTEND Physician Assistant
DX: L57.0 Actinic keratosis (principal)
CPT/HCPCS: 11102; 88305; G0463

== ENCOUNTER → 2020-12-20 | Outpatient (CLI) | payer MEDICARE ==
[2020-12-20 14:09] LABS: BLOOD UREA NITROGEN 16 MG/DL (7-18); CARBON DIOXIDE LEVEL 30 MEQ/L (21-32); CHLORIDE LEVEL 108 MEQ/L (98-107); CHOLESTEROL LEVEL 109 MG/DL (<200); CHOLESTEROL RISK RATIO 3.406 (<5); CREATININE FOR GFR 0.83 MG/DL (0.70-1.30); GLOMERULAR FILTRATION RATE > 60.0 (>42); GLUCOSE, FASTING 101 MG/DL (70-100); HDL CHOLESTEROL 32 MG/DL (>40); LDL CHOLESTEROL 59 MG/DL (<100); NON-HDL-C 77 MG/DL; POTASSIUM SERUM 4.5 MEQ/L (3.5-5.1); SODIUM LEVEL 141 MEQ/L (136-145); TRIGLYCERIDES LEVEL 91 MG/DL (<150)
== END ==
LOC: M PLALAB 09:36
PROVIDERS: ATTEND Physician Assistant
DX: E78.2 Mixed hyperlipidemia (principal)

== ENCOUNTER → 2021-05-31 | Outpatient (REF) | payer MEDICARE ==
[~2021-05-31] MED LIST changes: -CITA10TA5 PO; +CITA10TA7 PO; +LOSA50TA28 PO; -LOSA50TA88 PO; -MONT10TA10; +MONT10TA97
== END ==
LOC: M SFHCADAM 07:54
PROVIDERS: ATTEND Family Medicine
DX: J44.9 Chronic obstructive pulmonary disease, unspecified (principal); T38.0X5A Adverse effect of glucocorticoids and synthetic analogues, initial encounter; I11.9 Hypertensive heart disease without heart failure; E78.2 Mixed hyperlipidemia

== ENCOUNTER → 2022-02-24 | Outpatient (CLI) | payer MEDICARE ==
[~2022-02-24] MED LIST changes: -ACUV0.45; +KETO1DRO
== END ==
LOC: M SOG 07:50
PROVIDERS: ATTEND Orthopaedic Surgery Adult Reconstructive Orthopaedic Surgery
DX: M25.561 Pain in right knee (principal); M25.562 Pain in left knee; M25.461 Effusion, right knee; M25.462 Effusion, left knee; M17.0 Bilateral primary osteoarthritis of knee

== ENCOUNTER → 2022-03-03 | Outpatient (CLI) | payer MEDICARE ==
[2022-03-03 14:29] LABS: FREE THYROXINE INDEX 2.3 % (1.4-3.8); THYROID STIMULATING HORMONE 1.56 uIU/ML (0.358-3.740); THYROXINE (T4) 6.7 UG/DL (4.5-12.0)
[2022-03-03 14:57] LABS: FOLATE 15.9 NG/ML (>5.4)
== END ==
LOC: M PLALAB 09:45
PROVIDERS: ATTEND Psychiatry & Neurology Neurology
DX: E03.9 Hypothyroidism, unspecified (principal); E53.8 Deficiency of other specified B group vitamins; R41.3 Other amnesia

== ENCOUNTER → 2022-03-17 | Outpatient (CLI) | payer MEDICARE | LOC: M RAD 12:21 | PROVIDERS: ATTEND Physician Assistant | DX: S80.11XA Contusion of right lower leg, initial encounter (principal); X58.XXXA Exposure to other specified factors, initial encounter; Y92.9 Unspecified place or not applicable; Y93.9 Activity, unspecified; Y99.9 Unspecified external cause status ==

== ENCOUNTER 2022-05-30 21:26 | Emergency (ER) | payer MEDICARE ==
[~2022-05-30] VITALS: Ht 170.2 cm; Wt 120.7 kg
[2022-05-31] MEDS ORDERED: LIDOCAINE VISCOUS 2% SOLN 15ML UDC PO ONE ×2 (08:40→13:30)
[2022-05-31 09:28] LABS: BASO # 0.1 10^3/uL (0.0-0.2); BASO % 0.8 % (0.0-1.0); EOS # 0.2 10^3/uL (0.0-0.5); EOS % 2.1 % (0.0-3.0); HEMATOCRIT 41.1 % (42.0-52.0); HEMOGLOBIN 13.2 g/dl (13.5-17.5); LYMPH # 1.1 10^3/uL (1.5-5.0); MEAN CORPUSCULAR HEMOGLOBIN 29.1 pg (27.0-33.0); MEAN CORPUSCULAR HGB CONC 32.1 g/dl (32.0-36.5); MEAN CORPUSCULAR VOLUME 90.5 fl (80.0-96.0); MONO # 0.9 10^3/uL (0.0-0.8); MONO % 11.2 % (2.0-8.0); NEUTROPHILS # 5.4 10^3/uL (1.5-8.5); NEUTROPHILS % 70.4 % (36.0-66.0); PLATELET COUNT, AUTOMATED 250 10^3/uL (150-450); RED BLOOD COUNT 4.54 10^6/uL (4.30-6.10); WHITE BLOOD COUNT 7.6 10^3/uL (4.0-10.0)
[2022-05-31 09:52] LABS: C REACTIVE PROTEIN QUANTITATIV < 0.40 MG/DL (<1.0)
[2022-05-31 09:54] LABS: BLOOD UREA NITROGEN 15 MG/DL (9-23); CALCIUM LEVEL 8.9 MG/DL (8.3-10.6); CARBON DIOXIDE LEVEL 31 MMOL/L (20-31); CHLORIDE LEVEL 103 MMOL/L (98-107); CREATININE FOR GFR 0.72 MG/DL (0.70-1.30); GLOMERULAR FILTRATION RATE > 60.0 (>42); GLUCOSE, FASTING 100 MG/DL (74-106); POTASSIUM SERUM 4.5 MMOL/L (3.5-5.1); SODIUM LEVEL 139 MMOL/L (136-145)
[2022-05-31] MEDS ORDERED: ISOVUE-370 76% 100ML VIAL As Ordered ONE (10:07)
[2022-05-31 10:50] LABS: ERYTHROCYTE SEDIMENTATION RATE 18 mm/hr (0-20)
[2022-05-31] MEDS ORDERED: LIDOCAINE 2% 5ML JELLY UROJET TOP ONE (12:45)
[2022-05-31] MEDS ORDERED: CETACAINE SPRAY 5GM TOP ONE (12:45)
[2022-05-31] MEDS ORDERED: OXYMETAZOLINE 0.05% NASAL SPRAY (AFRIN) ONE (12:45)
[2022-05-31] MEDS ORDERED: PRED20TA PO (13:37)
[2022-05-31] MEDS ORDERED: CHLO1.4S7 PO (13:37)
[2022-05-31 14:00] VITALS: BP 170/99
== END 2022-05-31 14:07 | disposition home or self-care (01) ==
LOC: M ED 21:26
DX: J06.9 Acute upper respiratory infection, unspecified (principal); G47.33 Obstructive sleep apnea (adult) (pediatric); Z88.0 Allergy status to penicillin; Z88.2 Allergy status to sulfonamides; Z88.5 Allergy status to narcotic agent; Z88.8 Allergy status to other drugs, medicaments and biological substances; Z79.52 Long term (current) use of systemic steroids; Z79.811 Long term (current) use of aromatase inhibitors; Z79.02 Long term (current) use of antithrombotics/antiplatelets; Z79.899 Other long term (current) drug therapy
CPT/HCPCS: 70491; 80048; 85025; 85652; 86140; 87428; 87486; 87581; 87633; 87798; 87880; 99284; J1100; Q9967

== ENCOUNTER → 2022-07-13 | Outpatient (CLI) | payer MEDICARE ==
[~2022-07-13] MED LIST changes: +CHLO1.4S7 PO
[2022-07-13 18:49] LABS: HEMATOCRIT 41.9 % (42.0-52.0); HEMOGLOBIN 13.3 g/dl (13.5-17.5); MEAN CORPUSCULAR HGB CONC 31.7 g/dl (32.0-36.5); MEAN CORPUSCULAR VOLUME 91.3 fl (80.0-96.0); PLATELET COUNT, AUTOMATED 222 10^3/uL (150-450); RED BLOOD COUNT 4.59 10^6/uL (4.30-6.10)
== END ==
LOC: M WUC 11:08
PROVIDERS: ATTEND Physician Assistant Medical
DX: K62.5 Hemorrhage of anus and rectum (principal)

== ENCOUNTER → 2022-07-28 | Outpatient (CLI) | payer MEDICARE ==
[~2022-07-28] MED LIST changes: +E-Z-GAS II EFFERVESCENT PACKET (SODIUM BICARB./CITRIC ACID/SIMETHICONE) As Ordered ONE; +E-Z-HD 98% w/w 340GM SUSP BTL As Ordered ONE; +E-Z-PAQUE 96% w/w SUSP 176GM BTL As Ordered ONE
== END ==
LOC: M RAD 08:03
PROVIDERS: ATTEND Physician Assistant Medical
DX: R13.10 Dysphagia, unspecified (principal); K21.9 Gastro-esophageal reflux disease without esophagitis

== ENCOUNTER 2022-08-12 07:39 | Emergency (ER) | payer MEDICARE ==
[~2022-08-12] VITALS: Ht 170.2 cm; Wt 114.8 kg
[~2022-08-12 07:39] MED LIST changes: +ARTIDRO4 OU; +DULO60CA35 PO; -E-Z-GAS II EFFERVESCENT PACKET (SODIUM BICARB./CITRIC ACID/SIMETHICONE) As Ordered ONE; -E-Z-HD 98% w/w 340GM SUSP BTL As Ordered ONE; -E-Z-PAQUE 96% w/w SUSP 176GM BTL As Ordered ONE; +EQL50TAB2 PO; +FLUT50SP17; -FLUTISP; +LORA-243 PO; +LYRI75CA PO; -MONT10TA97; +MONT10TA97 PO; +MUCI600T31 PO; +PANT40TA29 PO; -POLYOPD OU; +SPIR-10 PO; +TORS10TA3 PO; +VITA100093 PO; +VITA400T26 PO; +[UNRECOGNIZED DRUG - CODE] OU
[2022-08-12] MEDS ORDERED: CEPHALEXIN 500 MG CAP PO ONE (10:45)
[2022-08-12] MEDS ORDERED: BOOSTRIX/ADACEL VACCINE (DIPHTH/PERTUSS/ACELL/TETANUS) 0.5ML SYR IM.IMMUN ONE (10:45)
[2022-08-12] MEDS ORDERED: LIDOCAINE 2% MDV 20ML VIAL SC ONE (10:45)
[2022-08-12] MEDS ORDERED: CEPH500C PO (11:36)
[2022-08-12 11:45] VITALS: BP 152/79
== END 2022-08-12 12:05 | disposition home or self-care (01) ==
LOC: M ED 11:44
DX: S62.601B Fracture of unspecified phalanx of left index finger, initial encounter for open fracture (principal); S61.301A Unspecified open wound of left index finger with damage to nail, initial encounter; W31.2XXA Contact with powered woodworking and forming machines, initial encounter; Y92.099 Unspecified place in other non-institutional residence as the place of occurrence of the external cause; Z79.899 Other long term (current) drug therapy; Z88.0 Allergy status to penicillin; Z88.2 Allergy status to sulfonamides; Z88.5 Allergy status to narcotic agent; Z88.1 Allergy status to other antibiotic agents

== ENCOUNTER 2022-08-22 09:38 | Day surgery (SDC) | payer MEDICARE ==
[~2022-08-22] VITALS: Ht 170.2 cm; Wt 112.7 kg
[~2022-08-22 09:38] MED LIST changes: +CEPH500C PO; +NS 1,000 ML IV ONE
[2022-08-22] MEDS ORDERED: propofoL 200 MG/20 ML VIAL As Ordered ONE ×3 (11:04→11:29)
[2022-08-22] MEDS ORDERED: LIDOCAINE 1% MDV 20ML VIAL As Ordered ONE (11:05)
[2022-08-22 12:00] VITALS: BP 160/78
== END 2022-08-22 12:05 | disposition home or self-care (01) ==
LOC: M OPP 09:38
PROVIDERS: ATTEND Internal Medicine Gastroenterology
DX: Z86.010 Personal history of colon polyps (principal); K64.8 Other hemorrhoids; K44.9 Diaphragmatic hernia without obstruction or gangrene; R13.10 Dysphagia, unspecified; G47.33 Obstructive sleep apnea (adult) (pediatric); Z99.89 Dependence on other enabling machines and devices; Z79.02 Long term (current) use of antithrombotics/antiplatelets; Z79.51 Long term (current) use of inhaled steroids; Z79.52 Long term (current) use of systemic steroids; Z79.899 Other long term (current) drug therapy; Z88.0 Allergy status to penicillin; Z88.1 Allergy status to other antibiotic agents; Z88.2 Allergy status to sulfonamides; Z88.5 Allergy status to narcotic agent
CPT/HCPCS: 43249; G0105

== ENCOUNTER → 2022-08-25 | Outpatient (CLI) | payer MEDICARE ==
[~2022-08-25] MED LIST changes: -NS 1,000 ML IV ONE
== END ==
LOC: M SOG 07:50
PROVIDERS: ATTEND Orthopaedic Surgery
DX: M25.561 Pain in right knee (principal); M25.562 Pain in left knee

== ENCOUNTER → 2022-09-15 | Outpatient (REF) | payer MEDICARE ==
[~2022-09-15] MED LIST changes: -VITA500064 PO; +VITA500065 PO
[2022-09-15 13:04] LABS: HEMATOCRIT 41.5 % (42.0-52.0); HEMOGLOBIN 13.4 g/dl (13.5-17.5); MEAN CORPUSCULAR HEMOGLOBIN 29.5 pg (27.0-33.0); MEAN CORPUSCULAR HGB CONC 32.3 g/dl (32.0-36.5); MEAN CORPUSCULAR VOLUME 91.2 fl (80.0-96.0); PLATELET COUNT, AUTOMATED 222 10^3/uL (150-450); RED BLOOD COUNT 4.55 10^6/uL (4.30-6.10); WHITE BLOOD COUNT 6.1 10^3/uL (4.0-10.0)
[2022-09-15 13:19] LABS: HEMOGLOBIN A1c 5.3 % (4.0-6.0)
[2022-09-15 13:36] LABS: ALBUMIN 4.3 G/DL (3.2-5.2); ALKALINE PHOSPHATASE 119 U/L (46-116); ALT/SGPT 39 U/L (7.0-40); AST/SGOT 39 U/L (<34); BILIRUBIN,TOTAL 0.5 MG/DL (0.3-1.2); BLOOD UREA NITROGEN 20 MG/DL (9-23); CALCIUM LEVEL 9.7 MG/DL (8.3-10.6); CARBON DIOXIDE LEVEL 29 MMOL/L (20-31); CHLORIDE LEVEL 105 MMOL/L (98-107); CHOLESTEROL LEVEL 116 MG/DL (<200); CHOLESTEROL RISK RATIO 2.91 (<5); GLOMERULAR FILTRATION RATE > 60.0 (>42); GLUCOSE, FASTING 91 MG/DL (74-106); HDL CHOLESTEROL 39.8 MG/DL (>40); LDL CHOLESTEROL 55.6 MG/DL (<100); NON-HDL-C 76.2 MG/DL; POTASSIUM SERUM 4.5 MMOL/L (3.5-5.1); SODIUM LEVEL 139 MMOL/L (136-145); TOTAL PROTEIN 7.6 G/DL (5.7-8.2); TRIGLYCERIDES LEVEL 103 MG/DL (<150)
== END ==
LOC: M SFHCADAM 10:47
PROVIDERS: ATTEND Family Medicine
DX: I11.9 Hypertensive heart disease without heart failure (principal); J44.9 Chronic obstructive pulmonary disease, unspecified; Z12.5 Encounter for screening for malignant neoplasm of prostate; G63 Polyneuropathy in diseases classified elsewhere; Z13.1 Encounter for screening for diabetes mellitus; Z79.899 Other long term (current) drug therapy
CPT/HCPCS: 80053; 80061; 83036; 85027; G0103

== ENCOUNTER → 2022-09-15 | Outpatient (CLI) | payer MEDICARE | LOC: M ADAMS 10:50 | PROVIDERS: ATTEND Family Medicine | DX: J44.1 Chronic obstructive pulmonary disease with (acute) exacerbation (principal) ==

== ENCOUNTER → 2023-02-09 | Outpatient (REF) | payer MEDICARE | LOC: M LAB REF 16:08 | PROVIDERS: ATTEND Physician Assistant Medical | DX: B34.9 Viral infection, unspecified (principal) ==

== ENCOUNTER → 2023-03-05 | Outpatient (CLI) | payer MEDICARE | LOC: M SOG 07:51 | PROVIDERS: ATTEND Orthopaedic Surgery | DX: M54.50 Low back pain, unspecified (principal); R10.2 Pelvic and perineal pain; M16.0 Bilateral primary osteoarthritis of hip; M25.551 Pain in right hip; M25.552 Pain in left hip ==

== ENCOUNTER → 2023-03-19 | Outpatient (CLI) | payer MEDICARE | LOC: M PLAIMG 06:41 | PROVIDERS: ATTEND Orthopaedic Surgery | DX: M47.816 Spondylosis without myelopathy or radiculopathy, lumbar region (principal); M48.061 Spinal stenosis, lumbar region without neurogenic claudication ==

== ENCOUNTER → 2023-05-04 | Outpatient (CLI) | payer MEDICARE ==
[~2023-05-04] MED LIST changes: -FLUT50SP17; +FLUTISP
== END ==
LOC: M ADAMS 11:20
PROVIDERS: ATTEND Family Medicine
DX: M54.12 Radiculopathy, cervical region (principal)

== ENCOUNTER → 2023-05-04 | Outpatient (REF) | payer MEDICARE ==
[2023-05-04 14:25] LABS: RED BLOOD COUNT 4.39 10^6/uL (4.30-6.10)
[2023-05-04 14:26] LABS: MEAN CORPUSCULAR HEMOGLOBIN 29.6 pg (27.0-33.0); MEAN CORPUSCULAR HGB CONC 32.5 g/dl (32.0-36.5); MEAN CORPUSCULAR VOLUME 91.1 fl (80.0-96.0); PLATELET COUNT, AUTOMATED 223 10^3/uL (150-450)
[2023-05-04 14:44] LABS: FREE T4 0.98 NG/DL (0.89-1.76)
[2023-05-04 14:45] LABS: THYROID STIMULATING HORMONE 2.792 uIU/ML (0.55-4.78)
[2023-05-04 14:46] LABS: ALBUMIN 4.1 G/DL (3.2-5.2); ALKALINE PHOSPHATASE 74 U/L (46-116); ALT/SGPT 41 U/L (7.0-40); AST/SGOT 30 U/L (<34); BILIRUBIN,TOTAL 0.4 MG/DL (0.3-1.2); BLOOD UREA NITROGEN 22 MG/DL (9-23); CALCIUM LEVEL 9.3 MG/DL (8.3-10.6); CARBON DIOXIDE LEVEL 31 MMOL/L (20-31); CHLORIDE LEVEL 103 MMOL/L (98-107); CHOLESTEROL LEVEL 108 MG/DL (<200); CHOLESTEROL RISK RATIO 3.03 (<5); CREATININE FOR GFR 1.06 MG/DL (0.70-1.30); GLOMERULAR FILTRATION RATE > 60.0 (>42); GLUCOSE, FASTING 97 MG/DL (74-106); HDL CHOLESTEROL 35.6 MG/DL (>40); NON-HDL-C 72.4 MG/DL; POTASSIUM SERUM 4.7 MMOL/L (3.5-5.1); SODIUM LEVEL 140 MMOL/L (136-145); TOTAL PROTEIN 6.9 G/DL (5.7-8.2); TRIGLYCERIDES LEVEL 112 MG/DL (<150)
== END ==
LOC: M SFHCADAM 10:03
PROVIDERS: ATTEND Family Medicine
DX: I11.9 Hypertensive heart disease without heart failure (principal); J44.9 Chronic obstructive pulmonary disease, unspecified; E78.2 Mixed hyperlipidemia; G40.109 Localization-related (focal) (partial) symptomatic epilepsy and epileptic syndromes with simple partial seizures, not intractable, without status epilepticus

== ENCOUNTER → 2023-05-31 | Outpatient (CLI) | payer MEDICARE | LOC: M SOG 11:19 | PROVIDERS: ATTEND Orthopaedic Surgery | DX: M25.561 Pain in right knee (principal); M25.562 Pain in left knee; M25.461 Effusion, right knee; M17.0 Bilateral primary osteoarthritis of knee ==

== ENCOUNTER → 2023-06-20 | Outpatient (CLI) | payer MEDICARE ==
[2023-06-20 15:35] LABS: BASO # 0.1 10^3/uL (0.0-0.2); BASO % 1.1 % (0.0-1.0); EOS # 0.1 10^3/uL (0.0-0.5); EOS % 2.8 % (0.0-3.0); HEMATOCRIT 38.5 % (42.0-52.0); HEMOGLOBIN 12.5 g/dl (13.5-17.5); LYMPH # 1.4 10^3/uL (1.5-5.0); LYMPH % 30.4 % (24.0-44.0); MEAN CORPUSCULAR HEMOGLOBIN 29.1 pg (27.0-33.0); MEAN CORPUSCULAR HGB CONC 32.5 g/dl (32.0-36.5); MEAN CORPUSCULAR VOLUME 89.5 fl (80.0-96.0); MONO # 0.7 10^3/uL (0.0-0.8); NEUTROPHILS # 2.4 10^3/uL (1.5-8.5); NEUTROPHILS % 51.5 % (36.0-66.0); PLATELET COUNT, AUTOMATED 224 10^3/uL (150-450); WHITE BLOOD COUNT 4.6 10^3/uL (4.0-10.0)
[2023-06-20 16:00] LABS: ALBUMIN 3.8 G/DL (3.2-5.2)
[2023-06-20 16:08] LABS: PERCENT SATURATION 19.2 % (19.7-50.0)
[2023-06-20 16:10] LABS: FERRITIN 24.8 NG/ML (10.5-307.3)
== END ==
LOC: M PLALAB 13:55
PROVIDERS: ATTEND Orthopaedic Surgery
DX: Z01.818 Encounter for other preprocedural examination (principal); M25.561 Pain in right knee

== ENCOUNTER → 2023-08-30 | Outpatient (REF) | payer MEDICARE ==
[2023-08-30 16:51] LABS: HEMOGLOBIN 13.3 g/dl (13.5-17.5); MEAN CORPUSCULAR HEMOGLOBIN 29.6 pg (27.0-33.0); MEAN CORPUSCULAR HGB CONC 32.4 g/dl (32.0-36.5); MEAN CORPUSCULAR VOLUME 91.3 fl (80.0-96.0); PLATELET COUNT, AUTOMATED 215 10^3/uL (150-450); RED BLOOD COUNT 4.49 10^6/uL (4.30-6.10); WHITE BLOOD COUNT 5.2 10^3/uL (4.0-10.0)
[2023-08-30 17:08] LABS: ALBUMIN 4.3 G/DL (3.2-5.2); ALKALINE PHOSPHATASE 87 U/L (46-116); ALT/SGPT 42 U/L (7.0-40); AST/SGOT 30 U/L (<34); BILIRUBIN,TOTAL 0.4 MG/DL (0.3-1.2); BLOOD UREA NITROGEN 19 MG/DL (9-23); CALCIUM LEVEL 9.2 MG/DL (8.3-10.6); CARBON DIOXIDE LEVEL 30 MMOL/L (20-31); CHLORIDE LEVEL 105 MMOL/L (98-107); CREATININE FOR GFR 0.92 MG/DL (0.70-1.30); GLOMERULAR FILTRATION RATE > 60.0 (>42); GLUCOSE, FASTING 81 MG/DL (74-106); POTASSIUM SERUM 4.4 MMOL/L (3.5-5.1); SODIUM LEVEL 142 MMOL/L (136-145); TOTAL PROTEIN 7.4 G/DL (5.7-8.2)
[2023-08-30 17:21] LABS: INR 1.08; PROTHROMBIN TIME 13.7 SECONDS (12.5-14.5)
== END ==
LOC: M SFHCADAM 10:54
PROVIDERS: ATTEND Family Medicine
DX: Z01.818 Encounter for other preprocedural examination (principal); I11.9 Hypertensive heart disease without heart failure; J45.41 Moderate persistent asthma with (acute) exacerbation; Z79.01 Long term (current) use of anticoagulants; Z79.51 Long term (current) use of inhaled steroids; Z79.52 Long term (current) use of systemic steroids; Z88.3 Allergy status to other anti-infective agents; Z88.5 Allergy status to narcotic agent; Z80.42 Family history of malignant neoplasm of prostate; Z91.048 Other nonmedicinal substance allergy status; Z88.0 Allergy status to penicillin; Z88.8 Allergy status to other drugs, medicaments and biological substances; Z88.1 Allergy status to other antibiotic agents; Z87.891 Personal history of nicotine dependence

== ENCOUNTER → 2024-03-04 | Outpatient (REF) | payer MEDICARE ==
[~2024-03-04] MED LIST changes: +ONDA-282 PO; -ONDA4TAB6 PO
[2024-03-04 12:54] LABS: HEMATOCRIT 39.1 % (42.0-52.0); HEMOGLOBIN 12.9 g/dl (13.5-17.5); MEAN CORPUSCULAR HEMOGLOBIN 29.7 pg (27.0-33.0); MEAN CORPUSCULAR VOLUME 89.9 fl (80.0-96.0); PLATELET COUNT, AUTOMATED 226 10^3/uL (150-450); RED BLOOD COUNT 4.35 10^6/uL (4.30-6.10); WHITE BLOOD COUNT 5.4 10^3/uL (4.0-10.0)
[2024-03-04 12:57] LABS: ALBUMIN 3.9 G/DL (3.2-5.2); ALKALINE PHOSPHATASE 121 U/L (40-129); ALT/SGPT 29 U/L (7.0-40); AST/SGOT 18 U/L (<34); BILIRUBIN,TOTAL 0.4 MG/DL (0.3-1.2); BLOOD UREA NITROGEN 24 MG/DL (9-23); CALCIUM LEVEL 10.1 MG/DL (8.3-10.6); CARBON DIOXIDE LEVEL 30 MMOL/L (20-31); CHLORIDE LEVEL 105 MMOL/L (98-107); CHOLESTEROL LEVEL 131 MG/DL (<200); CHOLESTEROL RISK RATIO 2.75 (<5); CREATININE FOR GFR 0.89 MG/DL (0.70-1.30); GLOMERULAR FILTRATION RATE > 60.0 (>42); GLUCOSE, FASTING 97 MG/DL (74-106); HDL CHOLESTEROL 47.5 MG/DL (>40); LDL CHOLESTEROL 70.3 MG/DL (<100); NON-HDL-C 83.5 MG/DL; POTASSIUM SERUM 4.7 MMOL/L (3.5-5.1); PSA SCREENING 0.94 NG/ML (< 4.00); SODIUM LEVEL 140 MMOL/L (136-145); TOTAL PROTEIN 7.9 G/DL (5.7-8.2); TRIGLYCERIDES LEVEL 66 MG/DL (<150)
[2024-03-04 13:52] LABS: HEMOGLOBIN A1c 5.5 % (4.0-6.0)
== END ==
LOC: M SFHCADAM 09:05
PROVIDERS: ATTEND Family Medicine
DX: I11.9 Hypertensive heart disease without heart failure (principal); J44.9 Chronic obstructive pulmonary disease, unspecified; E78.2 Mixed hyperlipidemia; Z13.1 Encounter for screening for diabetes mellitus; Z12.5 Encounter for screening for malignant neoplasm of prostate
CPT/HCPCS: 80053; 80061; 83036; 85027; G0103

== ENCOUNTER → 2024-03-14 | Outpatient (CLI) | payer MEDICARE | LOC: M CARPUL 14:39 | PROVIDERS: ATTEND Family Medicine | DX: I77.810 Thoracic aortic ectasia (principal); I27.20 Pulmonary hypertension, unspecified ==

== ENCOUNTER → 2024-04-14 | Outpatient (REF) | payer MEDICARE | LOC: M SFHCDERM 17:45 | PROVIDERS: ATTEND Physician Assistant | DX: L82.1 Other seborrheic keratosis (principal) ==

== ENCOUNTER 2024-04-24 12:11 | Emergency (ER) | payer MEDICARE ==
[~2024-04-24] VITALS: Ht 170.2 cm; Wt 116.3 kg
[2024-04-24] MEDS: methylPREDNISolone 125MG 2ML VIAL IV ONE (13:03)
[2024-04-24 13:08] LABS: EOS % 0.1 % (0.0-3.0); HEMATOCRIT 36.8 % (42.0-52.0); LYMPH # 0.5 10^3/uL (1.5-5.0); LYMPH % 5.2 % (24.0-44.0); MEAN CORPUSCULAR HGB CONC 32.6 g/dl (32.0-36.5); MEAN CORPUSCULAR VOLUME 88.9 fl (80.0-96.0); MONO # 0.3 10^3/uL (0.0-0.8); MONO % 3.1 % (2.0-8.0); NEUTROPHILS % 91.3 % (36.0-66.0); PLATELET COUNT, AUTOMATED 194 10^3/uL (150-450); RED BLOOD COUNT 4.14 10^6/uL (4.30-6.10); WHITE BLOOD COUNT 8.8 10^3/uL (4.0-10.0)
[2024-04-24 13:41] LABS: CK-MB VALUE MASS < 1.0 NG/ML (<3.6); LIPASE 27 U/L (12-53)
[2024-04-24 13:45] LABS: FREE T4 1.07 NG/DL (0.89-1.76); THYROID STIMULATING HORMONE 1.072 uIU/ML (0.55-4.78)
[2024-04-24 13:51] LABS: ALBUMIN 3.6 G/DL (3.2-5.2); ALKALINE PHOSPHATASE 85 U/L (40-129); ALT/SGPT 31 U/L (7.0-40); AST/SGOT 24 U/L (<34); BILIRUBIN,DIRECT 0.2 MG/DL (<0.4); BILIRUBIN,TOTAL 0.5 MG/DL (0.3-1.2); BLOOD UREA NITROGEN 19 MG/DL (9-23); CALCIUM LEVEL 8.7 MG/DL (8.3-10.6); CARBON DIOXIDE LEVEL 28 MMOL/L (20-31); CHLORIDE LEVEL 105 MMOL/L (98-107); CPK CREATINE PHOSPHOKINASE 110 U/L (46-171); CREATININE FOR GFR 0.88 MG/DL (0.70-1.30); GLOMERULAR FILTRATION RATE > 60.0 (>42); GLUCOSE, FASTING 120 MG/DL (74-106); POTASSIUM SERUM 4.9 MMOL/L (3.5-5.1); SODIUM LEVEL 141 MMOL/L (136-145); TOTAL PROTEIN 6.7 G/DL (5.7-8.2)
[2024-04-24 14:44] LABS: CK-MB VALUE MASS < 1.0 NG/ML (<3.6)
[2024-04-24 14:45] LABS: CPK CREATINE PHOSPHOKINASE 98 U/L (46-171); MB/CK RELATIVE INDEX 1.02 (< OR =4)
[2024-04-24] MEDS ORDERED: PRED10TA2 PO (14:53)
[2024-04-24 15:08] VITALS: BP 147/82; TEMP 98.2; O2SAT 96
== END 2024-04-24 15:15 | disposition home or self-care (01) ==
LOC: M ED 12:11
DX: T78.40XA Allergy, unspecified, initial encounter (principal); E78.5 Hyperlipidemia, unspecified; I10 Essential (primary) hypertension; J44.9 Chronic obstructive pulmonary disease, unspecified; F41.9 Anxiety disorder, unspecified; N40.0 Benign prostatic hyperplasia without lower urinary tract symptoms; Z88.0 Allergy status to penicillin; Z88.2 Allergy status to sulfonamides; Z88.5 Allergy status to narcotic agent; Z88.8 Allergy status to other drugs, medicaments and biological substances; Z79.01 Long term (current) use of anticoagulants; Z79.52 Long term (current) use of systemic steroids; Z79.899 Other long term (current) drug therapy
CPT/HCPCS: 36415; 71045; 80048; 80076; 82550; 82553; 83690; 84439; 84443; 84484; 85025; 93005; 93041; 94760; 99285; J2919

== ENCOUNTER → 2024-06-30 | Outpatient (CLI) | payer MEDICARE ==
[~2024-06-30] MED LIST changes: +PRED10TA2 PO
== END ==
LOC: M RAD 11:08
PROVIDERS: ATTEND Internal Medicine Pulmonary Disease
DX: J45.41 Moderate persistent asthma with (acute) exacerbation (principal)

== ENCOUNTER → 2024-09-05 | Outpatient (REF) | payer MEDICARE ==
[~2024-09-05] MED LIST changes: -FLOM0.4C39 PO; +TAMS-18 PO
[2024-09-05 13:37] LABS: FREE T4 1.13 NG/DL (0.89-1.76); THYROID STIMULATING HORMONE 4.377 uIU/ML (0.55-4.78)
[2024-09-05 13:40] LABS: CHOLESTEROL LEVEL 134 MG/DL (<200); CHOLESTEROL RISK RATIO 3.41 (<5); HDL CHOLESTEROL 39.2 MG/DL (>40); LDL CHOLESTEROL 69.2 MG/DL (<100); NON-HDL-C 94.8 MG/DL; TRIGLYCERIDES LEVEL 128 MG/DL (<150); VITAMIN B12 LEVEL 549 PG/ML (211-911)
[2024-09-05 13:41] LABS: FOLATE > 24.00 NG/ML (>5.4)
[2024-09-05 13:42] LABS: HEMATOCRIT 41.6 % (42.0-52.0); HEMOGLOBIN 13.1 g/dl (13.5-17.5); MEAN CORPUSCULAR HEMOGLOBIN 27.9 pg (27.0-33.0); MEAN CORPUSCULAR HGB CONC 31.5 g/dl (32.0-36.5); MEAN CORPUSCULAR VOLUME 88.7 fl (80.0-96.0); PLATELET COUNT, AUTOMATED 267 10^3/uL (150-450); RED BLOOD COUNT 4.69 10^6/uL (4.30-6.10); WHITE BLOOD COUNT 5.8 10^3/uL (4.0-10.0)
[2024-09-05 14:30] LABS: HEMOGLOBIN A1c 5.7 % (4.0-6.0)
== END ==
LOC: M SFHCADAM 10:05
PROVIDERS: ATTEND Family Medicine
DX: I11.9 Hypertensive heart disease without heart failure (principal); G47.33 Obstructive sleep apnea (adult) (pediatric); E53.8 Deficiency of other specified B group vitamins; F41.9 Anxiety disorder, unspecified; G63 Polyneuropathy in diseases classified elsewhere; E78.2 Mixed hyperlipidemia

== ENCOUNTER → 2025-01-12 | Outpatient (CLI) | payer MEDICARE ==
[~2025-01-12] MED LIST changes: -EQL50TAB2 PO; +VITA1TAB82 PO
[2025-01-12 13:05] LABS: BASO # 0.0 10^3/uL (0.0-0.2); BASO % 0.1 % (0.0-1.0); C REACTIVE PROTEIN QUANTITATIV 0.52 MG/DL (<1.0); EOS # 0.0 10^3/uL (0.0-0.5); EOS % 0.1 % (0.0-3.0); LYMPH # 0.6 10^3/uL (1.5-5.0); LYMPH % 8.6 % (24.0-44.0); MONO # 0.4 10^3/uL (0.0-0.8); MONO % 6.2 % (2.0-8.0); NEUTROPHILS # 5.9 10^3/uL (1.5-8.5); NEUTROPHILS % 84.4 % (36.0-66.0); PLATELET COUNT, AUTOMATED 261 10^3/uL (150-450)
[2025-01-12 13:06] LABS: ALT/SGPT 26.0 U/L (7.0-40); AST/SGOT 20.0 U/L (<34); CALCIUM LEVEL 8.7 MG/DL (8.3-10.6); CARBON DIOXIDE LEVEL 28.0 MMOL/L (20-31); CHLORIDE LEVEL 106.0 MMOL/L (98-107); CREATININE FOR GFR 0.92 MG/DL (0.70-1.30); GLOMERULAR FILTRATION RATE 86.8 (>42); POTASSIUM SERUM 4.6 MMOL/L (3.5-5.1); SODIUM LEVEL 139.0 MMOL/L (136-145)
[2025-01-12 13:13] LABS: ERYTHROCYTE SEDIMENTATION RATE 32 mm/hr (0-20)
== END ==
LOC: M WUC 09:44
PROVIDERS: ATTEND Registered Nurse
DX: R21 Rash and other nonspecific skin eruption (principal)

== ENCOUNTER → 2025-02-16 | Outpatient (CLI) | payer MEDICARE ==
[2025-02-16 13:26] LABS: BASO # 0.0 10^3/uL (0.0-0.2); BASO % 0.8 % (0.0-1.0); EOS # 0.1 10^3/uL (0.0-0.5); EOS % 2.2 % (0.0-3.0); LYMPH # 1.2 10^3/uL (1.5-5.0); LYMPH % 23.7 % (24.0-44.0); MONO # 0.7 10^3/uL (0.0-0.8); MONO % 13.0 % (2.0-8.0); NEUTROPHILS # 3.1 10^3/uL (1.5-8.5); NEUTROPHILS % 60.1 % (36.0-66.0); PLATELET COUNT, AUTOMATED 264 10^3/uL (150-450)
[2025-02-16 13:56] LABS: RHEUMATOID FACTOR QUANT < 3.5 IU/ML (<14); THYROXINE (T4) 5.3 UG/DL (4.5-10.9)
[2025-02-16 13:58] LABS: TOTAL T3 104.7 NG/DL (60.0-181.0)
[2025-02-16 13:59] LABS: THYROID PEROXIDASE ANTIBODY < 28.0 U/ML (<60.0)
[2025-02-18 09:42] LABS: THRYOGLOBULIN ANTIBODIES (ATA) < 1 IU/mL (< or = 1); THYROGLOBULIN QUANTITATIVE 13.6 ng/mL (2.8-40.9)
[2025-02-18 14:39] LABS: COMPLEMENT TOTAL (CH50) 58 U/mL (31-60)
== END ==
LOC: M PLALAB 09:58
PROVIDERS: ATTEND Allergy & Immunology Allergy
DX: R21 Rash and other nonspecific skin eruption (principal)

== ENCOUNTER → 2025-04-02 | Outpatient (CLI) | payer MEDICARE ==
[2025-04-02 10:34] LABS: BASO # 0.1 10^3/uL (0.0-0.2); BASO % 0.9 % (0.0-1.0); EOS # 0.1 10^3/uL (0.0-0.5); EOS % 2.0 % (0.0-3.0); LYMPH # 1.1 10^3/uL (1.5-5.0); LYMPH % 16.3 % (24.0-44.0); MONO # 0.8 10^3/uL (0.0-0.8); MONO % 11.7 % (2.0-8.0); NEUTROPHILS # 4.5 10^3/uL (1.5-8.5); NEUTROPHILS % 68.9 % (36.0-66.0); PLATELET COUNT, AUTOMATED 224 10^3/uL (150-450)
[2025-04-07 07:46] LABS: BERMUDA GRASS IGE < 0.10 kU/L (<0.10); BIRCH IGE < 0.10 kU/L (<0.10); COMMON RAGWEED SHORT IGE < 0.10 kU/L (<0.10); D001 IGE D PTERONYSSINUS < 0.10 kU/L (<0.10); D002-IGE D FARINAE < 0.10 kU/L (<0.10); E001-IGE CAT DANDER < 0.10 kU/L (<0.10); E005-IGE DOG DANDER < 0.10 kU/L (<0.10); ELM IGE < 0.10 kU/L (<0.10); I006 IGE COCKROACH < 0.10 kU/L (<0.10); IMMUNOGLOBULIN E FOR ALLERGENS 14 kU/L (<OR=114); M006 IGE ALTERNIA ALTERNATA < 0.10 kU/L (<0.10); M1-PENICILLIUM NOTATUM < 0.10 kU/L (<0.10); MOUSE URINE IGE < 0.10 kU/L (<0.10); MUGWORT IGE < 0.10 kU/L (<0.10); OAK IGE < 0.10 kU/L (<0.10); ROUGH PIGWEED IGE < 0.10 kU/L (<0.10); SHEEP SORREL IGE < 0.10 kU/L (<0.10); T001-IGE MAPLE BOX ELDER < 0.10 kU/L (<0.10); T006-IGE MOUNTAIN CEDAR < 0.10 kU/L (<0.10); T014 COTTONWOOD IGE < 0.10 kU/L (<0.10); TIMOTHY GRASS IGE < 0.10 kU/L (<0.10); WALNUT TREE IGE < 0.10 kU/L (<0.10); WHITE ASH IGE < 0.10 kU/L (<0.10); WHITE MULBERRY IGE < 0.10 kU/L (<0.10)
== END ==
LOC: M PLALAB 09:25
PROVIDERS: ATTEND Internal Medicine Pulmonary Disease
DX: J45.41 Moderate persistent asthma with (acute) exacerbation (principal)